=== PATIENT | male | born 1975 | race Hispanic/Latino ===

== ENCOUNTER 2018-12-24 09:04 | Inpatient (IN) | payer BC, OTHER ==
[2018-12-24 09:40] LABS: #Basophils 0.1 thou/uL (0.0-0.2); #Eosinphils 0.1 thou/uL (0.0-0.7); #Lymphocytes 2.7 thou/uL (1.20-3.40); #Monocytes 0.7 thou/uL (0.11-0.59); #Neutrophils 14.5 thou/uL (1.40-6.50); %Basophils 0.6 % (0.0-1.0); %Eosinophils 0.4 % (0.0-10.0); %Lymphocytes 14.9 % (21.0-51.0); %Monocytes 3.7 % (0.0-10.0); %Neutrophils 80.4 % (42.0-75.0); Mean Corpuscular HGB CONC 32.8 g/dL (32.0-36.0); Mean Corpuscular Hemoglobin 30.2 pg (27.0-31.0); Mean Corpuscular Volume 92.3 fL (78.0-98.0); Mean Platelet Volume 8.3 fL (7.4-10.4); Platelet Count 391 thou/uL (130-400); RBC Distribution Width 12.7 % (11.5-14.5); Red Blood Cell (RBC) Count 5.96 mill/uL (4.70-6.10)
[2018-12-24 09:51] LABS: ALT (SGPT) 20 U/L (8-55); AST (SGOT) 12 U/L (5-34); Albumin 5.4 g/dL (3.5-5.0); Alkaline Phosphatase 135 U/L (40-150); BUN (Urea Nitrogen) 21 mg/dL (8.9-20.6); Bilirubin, Total 0.3 mg/dL (0.2-1.2); Calc. Creatinine Clearance 0 mL/min (70-130); Calcium 9.6 mg/dL (7.8-10.44); Chloride 96 mmol/L (98-107); Estimated GFR-MDRD 37; Globulin 4.4 g/dL (2.4-3.5); Glucose 523 mg/dL (70-105); Lipase 60 U/L (8-78); Magnesium 2.6 mg/dL (1.6-2.6); Phosphorus 5.1 mg/dL (2.3-4.7); Potassium 5.2 mmol/L (3.5-5.1); Protein, Total 9.8 g/dL (6.0-8.3); Sodium 127 mmol/L (136-145)
[2018-12-24 09:55] LABS: Carbon Dioxide Less than 8 mmol/L (22-29)
[2018-12-24] MEDS ORDERED: Ondansetron PF 4 MG/2 ML Vial ONE ×2 (10:13→13:37)
[2018-12-24] MEDS ORDERED: HUMULIN R 100 UNITS in Sodium Chloride 0.9% 99 ML IVPB SCH (10:30)
[2018-12-24 11:13] LABS: Bilirubin Small (Negative); Blood, Urine Small (Negative); Glucose, Urine (Dipstick) 500 mg/dL (Negative); Leukocyte Negative (Negative); Nitrite Negative (Negative); Protein, Urine (Dipstick) 30 mg/dL (Neg-Trace); Urobilinogen 0.2 mg/dL (0.2-1.0); pH, Urine 5.5 (5.0-9.0)
[2018-12-24 11:14] LABS: Clarity CLEAR (Clear)
[2018-12-24 11:15] LABS: Specific Gravity, Urine 1.022 (1.002-1.036)
[2018-12-24 11:22] LABS: Bacteria/HPF 1+ HPF (None Seen); Hyaline Casts/LPF NONE SEEN LPF (0-3 Hyaline); RBC/HPF 0-3 HPF (0-3); Squamous Epithelial 0-3 HPF (0-3); WBC/HPF 0-3 HPF (0-3)
--- NOTE | 2018-12-24 11:29 | RAD ---
CHEST 1 VIEW: HISTORY: Nausea and vomiting. COMPARISON: Radiograph 06/15/2016. FINDINGS: Heart size is mildly enlarged. No focal airspace consolidation, pneumothorax, or effusion. No acute osseous abnormality. IMPRESSION: No acute intrathoracic abnormality. POS: TPC
[2018-12-24] MEDS ORDERED: HUMULIN R 100 UNITS in Sodium Chloride 0.9% 100 ML IVPB SCH (11:59)
[2018-12-24] MEDS ORDERED: Acetaminophen 325 MG TAB PO PRN (11:59)
[2018-12-24] MEDS ORDERED: Bisacodyl 5 MG TAB PO PRN (11:59)
[2018-12-24] MEDS ORDERED: Zolpidem Tartrate 5 MG TAB PO PRN (11:59)
[2018-12-24] MEDS ORDERED: Bisacodyl 10 MG SUPP PR PRN (11:59)
[2018-12-24] MEDS ORDERED: Loratadine 10 MG TAB PO PRN (11:59)
[2018-12-24] MEDS ORDERED: Cepastat Lozenges 1 LOZ PO PRN (11:59)
[2018-12-24] MEDS ORDERED: HYDROcodone/Acetaminophen 5/325 mg Tablet PO PRN (11:59)
[2018-12-24] MEDS ORDERED: Eucerin (Mineral Oil/Petrolatum,White) 30 gm Jar TOP PRN (11:59)
[2018-12-24] MEDS ORDERED: Sodium Chloride 0.9% 1,000 ML IV PRN ×4 (11:59)
[2018-12-24] MEDS ORDERED: NS 0.9% w/ 20 MEQ KCL 1,000 ML IV PRN (11:59)
[2018-12-24] MEDS ORDERED: Calcium Carbonate 500 MG ChewTAB PO PRN (11:59)
[2018-12-24] MEDS ORDERED: Ondansetron ODT 4 MG TAB PO PRN (11:59)
[2018-12-24] MEDS ORDERED: Sodium Chloride 0.65% Nasal 44 ML BOT EA NARE PRN (11:59)
[2018-12-24] MEDS ORDERED: Dextrose 5 %-0.45 % NaCl 1,000 ML IV PRN (11:59)
[2018-12-24] MEDS ORDERED: Ondansetron PF 4 MG/2 ML Vial IVP PRN (11:59)
[2018-12-24] MEDS ORDERED: Diabetic Tussin 200 MG/10 ML UDCUP PO PRN (11:59)
[2018-12-24] MEDS ORDERED: Senokot S 8.6-50 MG TAB PO PRN (11:59)
[2018-12-24] MEDS ORDERED: CCU Electrolyte Replacement 1 EACH IVPB ONE (11:59)
[2018-12-24] MEDS ORDERED: Artificial Tears 18 DROP/0.9 ML EA EYE PRN (11:59)
[2018-12-24] MEDS ORDERED: hydrALAZINE 20 MG/ML VIAL SLOW IVP PRN (11:59)
[2018-12-24] MEDS ORDERED: Loperamide HCl 2 MG CAP PO PRN (11:59)
[2018-12-24] MEDS ORDERED: Magnesium Oxide 400 MG TAB PO PRN ×2 (12:22)
[2018-12-24] MEDS ORDERED: Potassium Phosphate 15 MMOL in Sodium Chloride 0.9% 250 ML 250 ML IV PRN (12:22)
[2018-12-24] MEDS ORDERED: Magnesium 2 GM/NS 0.9% 100 ML 2 GM in Premix Bag 1 BAG IVPB PRN (12:22)
[2018-12-24] MEDS ORDERED: Potassium Chloride 40 MEQ in Premix Bag 1 BAG IVPB PRN (12:22)
[2018-12-24] MEDS ORDERED: Potassium Phosphate 9 MMOL in Sodium Chloride 0.9% 100 ML IVPB PRN (12:22)
[2018-12-24] MEDS ORDERED: Potassium Chloride 40 MEQ in Sodium Chloride 0.9% 250 ML 250 ML IVPB PRN (12:22)
[2018-12-24] MEDS ORDERED: Potassium Phosphate 12 MMOL in Sodium Chloride 0.9% 250 ML 250 ML IV PRN (12:22)
[2018-12-24] MEDS ORDERED: Potassium Chloride 20 MEQ TAB PO PRN (12:22)
[2018-12-24] MEDS ORDERED: CCU ELECTROLYTE REPLACEMENT PROTOCOL FS PRN (12:22)
[2018-12-24 13:10] LABS: BUN (Urea Nitrogen) 18 mg/dL (8.9-20.6); Calc. Creatinine Clearance 0 mL/min (70-130); Calcium 8.4 mg/dL (7.8-10.44); Carbon Dioxide Less than 8 mmol/L (22-29); Chloride 105 mmol/L (98-107); Estimated GFR-MDRD 50; Glucose 348 mg/dL (70-105); Magnesium 2.4 mg/dL (1.6-2.6); Phosphorus 3.4 mg/dL (2.3-4.7); Potassium 4.5 mmol/L (3.5-5.1); Sodium 132 mmol/L (136-145)
[2018-12-24] MEDS ORDERED: Sodium Bicarb 50 MEQ/50 ML Abboject 8.4% SYRINGE ONE (13:37)
[2018-12-24] MEDS ORDERED: Famotidine/PF 20 mg/2ml Vial ONE (13:37)
[2018-12-24 13:41] LABS: Actual Bicarbonate (HCO3a) 3.7 mEq/L (22-28); Analyzer IN Cardio ER; Base Excess (BEa) -22.2 mEq/L (-2.0 to +3.0); Calcium, Ionized 1.26 mmol/L (1.12-1.30); Carboxyhemoglobin (COHb) 0.3 gm% (0.0-3.0); Hemoglobin (Hb) 17.1 g/dL (14.0-18.0); O2 Tension (PaO2) 127.4 mmHg (80.0-100.0)
[2018-12-24 13:47] LABS: ALV-art Gradient 8.705 (0-20); CO2 Tension 10.9 mmHg (35.0-45.0); Puncture Site LRA; pH, Arterial 7.15 (7.35-7.45)
--- NOTE | 2018-12-24 15:06 | HP ---
PRIMARY CARE PHYSICIAN: [facility]. REASON FOR ADMISSION: Diabetes ketoacidosis, acute kidney failure. HISTORY OF PRESENT ILLNESS: A 43-year-old male, who has underlying history of diabetes, on insulin, who had one time admission in our hospital for diabetes ketoacidosis, who presented this time in the emergency room with complaint of nausea, vomiting, vague abdominal discomfort, and shortness of breath. He was not able to keep anything down and he stopped taking insulin. He did not eat significantly for last couple of days. He was feeling weak, fatigued, tired, dizzy. The patient denies any diarrhea, but he reports that because he did not eat anything that is why he does not have any bowel movement as well. He denies any abdominal distention. He denies any fever or chills. He denies any sore throat. He denies any flu-like illness. He denies any recent travel or sick exposure. When the patient presented to emergency room, he was hypertensive, tachycardic, tachypneic. His routine blood test showed severe acidosis with abnormal electrolytes and acute kidney failure. Clinically, he was having diabetes ketoacidosis. In the emergency room, he was given 2 to 3 L of IV fluid and he started making urine, but he was still tachypneic and his pH has not improved, that is why bicarbonate was given. The patient, when I saw at that time, he was already feeling better. He was still having Kussmaul type of breathing. At this point, the patient is being admitted to [facility] for DKA management. The patient reports that he did not run out his home medication. REVIEW OF SYSTEMS: CONSTITUTIONAL: Negative for weight loss or gain, ability to conduct usual activities. SKIN: Negative for rash, itching. EYES: Negative for double vision, pain. ENT/MOUTH: Negative for nose bleeding, neck stiffness, pain, tenderness. CARDIOVASCULAR: Negative for palpitations, dyspnea on exertion, orthopnea. RESPIRATORY: Negative for shortness of breath, wheezing, cough, hemoptysis, fever or night sweats. GASTROINTESTINAL: Negative for poor appetite, abdominal pain, heartburn, nausea, vomiting, constipation, or diarrhea. GENITOURINARY: Negative for urgency, frequency, dysuria, nocturia. MUSCULOSKELETAL: Negative for pain, swelling. NEUROLOGIC/PSYCHIATRIC: Negative for anxiety, depression. ALLERGY/IMMUNOLOGIC: Negative for skin rash, bleeding tendency. Please see my HPI for pertinent positives and negatives. All other review of systems reviewed and negative except as mentioned in HPI. PAST MEDICAL HISTORY: Diabetes type 2. PAST PSYCHIATRIC HISTORY: Posttraumatic stress disorder. PAST SURGICAL HISTORY: Reviewed and negative. SOCIAL HISTORY: The patient uses tobacco. He lives at home with family. No history of alcohol abuse, other illicit drug abuse. FAMILY HISTORY: Positive for diabetes. No family history of coronary artery disease, stroke, or cancer. CURRENT HOME MEDICATIONS: 1. Bupropion 300 mg p.o. daily. 2. Lisinopril 40 mg daily. 3. ProAir HFA as needed. 4. Celexa 40 mg daily. 5. Crestor 20 mg daily. 6. Lantus 25 units subcu daily. 7. Metformin 1000 mg twice daily. ALLERGIES: NO KNOWN DRUG ALLERGY. EMERGENCY ROOM COURSE: The patient has received IV fluid, bicarbonate, insulin drip, Zofran, and Pepcid. PHYSICAL EXAMINATION: VITAL SIGNS: Currently, blood pressure 142/97, pulse 116, respiratory rate 22, temperature 98.0, saturation 100% on room air. Weight 102.06 kg. GENERAL: The patient is currently alert and awake. No obvious acute distress. HEENT: Head; normocephalic, atraumatic. Eyes; pupils round, reactive to light. Extraocular muscle intact. ENT; oropharynx within normal limits. Moist mucous membranes. No oral lesion. No pharyngeal erythema. No exudate. NECK: Supple. No JVD. No thyromegaly. No carotid bruit. No jugular venous distention. LUNGS: Clear to auscultation without any rhonchi or rales. CARDIAC: S1 and S2 regular. Tachycardia. No murmur. No gallop. No rub. ABDOMEN: Soft. Bowel sounds present. Nontender. Nondistended. No organomegaly. No mass. No suprapubic tenderness. BACK: Unremarkable. No CVA tenderness. EXTREMITIES: Upper extremities; passive movement of all joints is normal. Lower extremities; no edema. Good distal pulsation. SKIN: No skin rash. HEMATOLOGICAL: No lymphadenopathy. PSYCHIATRIC: Normal affect. SIGNIFICANT LABORATORY DATA: EKG showing sinus tachycardia, left anterior fascicular block. Chest x-ray based on my review; no acute cardiopulmonary process. CBC; WBC 18.0, hemoglobin 18.0, and platelet 391. ABG; pH 7.15, CO2 of 10.9, bicarb 3.7, oxygen level 127.4, saturation 98.2. BMP; sodium 127, potassium 5.2, chloride 96, carbon dioxide less than 8, BUN 21, creatinine 2.02, glucose 523, calcium 9.6. LFT; AST 12, ALT 20, alkaline phosphatase 135, albumin 5.4, lipase 60, phosphorus 5.1, magnesium 2.6. Cardiac enzyme negative. Urinalysis; glucosuria, ketonuria. Serum ketones 13.23. Influenza A and B negative. Chest x-ray negative for any acute process. ASSESSMENT AND PLAN: Impression; 1. Diabetes ketoacidosis. This patient has clinically and laboratory finding teran diabetes ketoacidosis. He was initially given at least 3 L of fluid in the emergency room. We will continue with IV fluid. He is making now urine. His potassium is in reasonably accepted range and that is why insulin drip is started. We will monitor Accu-Chek every hourly and we will titrate insulin drip accordingly. The patient's pH is still 7.1 and that is why we gave him one ampule of bicarbonate. We will monitor BMP every 4 hourly. We will also monitor serum ketones. The patient will continue insulin drip up until anion gap closes. Whenever blood sugar drops below 250, at that point, we will change IV fluid to dextrose solution with insulin drip overlapping until ketones wash out. We will manage him in IMCU. We will closely monitor his hemodynamics. 2. Acute kidney failure due to prerenal etiology secondary to nausea and vomiting. The patient is given IV fluid and his creatinine is improving. We will repeat labs tomorrow. We will avoid nephrotoxins agent. 3. Abnormal electrolytes. This patient has currently low sodium. Potassium is slightly elevated. We will repeat electrolytes again tomorrow and replace accordingly. 4. Leukocytosis, likely due to stress response, does not suspect any infection at this point, the patient does not have any urinary tract infection symptoms. His chest x-ray is normal. 5. Hypertension, we will resume lisinopril tomorrow if blood pressure permits. 6. Dyslipidemia, we will start Lopid 600 mg twice daily. 7. Anxiety and depression, we will continue Celexa 20 mg b.i.d. 8. Deep vein thrombosis prophylaxis. Heparin 5000 units subcu twice daily. 9. Gastrointestinal prophylaxis, Pepcid p.o. or IV daily. CODE STATUS: The patient is full code. The patient does not have any surrogate decision maker. DISPOSITION PLAN: Based on clinical course. We are expecting the patient's stay in hospital more than 2 midnights. Plan of care discussed with the patient in detail. Job ID: [id number]
--- NOTE | 2018-12-24 15:13 | PDOC.PULCN ---
Pulmonology Consult: HPI - Date of Consult Date: 12/24/18 Time: 15:00 - Consult Details Reason for Consult: dka Requesting Physician: ganesh - History of Present Illness HPI: DAVID OSEI is a 43 year-old being admitted for DKA. The patient has a 4 year history of DM2 on Lantus 25U nightly at home. The patient states about 3 days ago he began to have N/V after eating some pickle chips from [employer]. He denies fevers, chills, or sweats. He denies rashes, burning with urination, or productive cough. He states he has vomitted x2 today. Denies any blood in vomit, denies diarrhea, or blood in stool. The patient states he has some mild right sided rib pain because he has been breathing so hard for the last day or two. He has used his inhaler x1 today. Patient was admitted at the [facility] one month ago for a case of DKA. REVIEW OF SYSTEMS: Gen: no fever, chills, or sweats Neuro: no numbness/tingling, no weakness, denies headache Eyes: no visual changes ENT: no hearing changes, no sore throat, no runny nose Resp: no cough, no SOB, no wheeze Card: no chest pain, no palpitations GI: see hpi : no dysuria, no hematuria, no incontinence, no change in frequency MSK: no myalgias, no joint pain/stiffness Heme: no easy bruising/bleeding Skin: no rash, no erythema PHYSICAL EXAMINATION: General: NAD, alert and oriented x3 HEENT: PERRLA, EOMI, normal sclera, oropharynx without erythema or exudate Neck: Supple. Full ROM. Heart/Cardiovascular System: RRR, Cap refill < 3 seconds, good pulses in all extremities Lungs/Respiratory System: clear to auscultation bilaterally. No increased work of breathing. Room air. Abdomen/Gastro-Intestinal System: no abdominal tenderness, normal bowel sounds, no masses, no organomegaly Extremeties: Warm extremities. No cyanosis or edema. Neuro: No gross deficits appreciated. CN 2-12 grossly intact Psychiatry: Awake, Alert and cooperative with exam Skin/ Integumentory: No lesions, rashes, or ulcers Musculoskeletal: Full ROM, Strength 5/5 in all 4 extremities Pulmonology Consult: ROS - Review of Systems Constitutional: negative: fever Pulmonology Consult: PMH Source: patient Past Medical History: DMII, HTN, PTSD - Family History Pertinent family history: non-contributory, no hx of DM or CAD - Social History Smoking Status: Current every day smoker (1ppd) Alcohol Use: none Drug Use History: marijuana Living Situation: Pulmonology Consult: Meds - Medications MAR Reviewed: Yes Medications: Current Medications Acetaminophen (Tylenol) 650 mg PO Q4H PRN PRN Reason: Headache/Fever/Mild Pain (1-3) Hydrocodone Bitart/Acetaminophen ([place] 5/325) 1 tab PO Q4H PRN PRN Reason: Moderate Pain (4-6) Albuterol/Ipratropium (Duoneb) 3 ml NEB [id number] PRN PRN Reason: SOB &/or Wheezing Artificial Tears (Tears Naturale) 2 drop EA EYE PRN PRN PRN Reason: Dry Eyes Bisacodyl (Dulcolax) 10 mg PO DAILYPRN PRN PRN Reason: Constipation Bisacodyl (Dulcolax) 10 mg UT DAILYPRN PRN PRN Reason: Constipation Calcium Carbonate (Tums) 1,000 mg PO Q4H PRN PRN Reason: Heartburn or Indigestion Famotidine (Pepcid) 20 mg SLOW IVP QPM JOCELYNE Famotidine (Pepcid) 20 mg PO QPM JOCELYNE Guaifenesin (Robitussin Sf) 200 mg PO Q4H PRN PRN Reason: Cough Heparin Sodium (Porcine) (Heparin) 5,000 units SC BID JOCELYNE Hydralazine HCl (Apresoline) 10 mg SLOW IVP Q4H PRN PRN Reason: SBP > 180 and HR < 70 Dextrose/Sodium Chloride (D5 1/2 Ns) 1,000 mls @ 250 mls/hr IV .Q4H PRN; Protocol PRN Reason: Step 4 of DKA Protocol Potassium Chloride/Dextrose/Sod Cl (D5 1/2 Ns W/20 Meq Kcl) 1,000 mls @ 250 mls /hr IV .Q4H PRN; Protocol PRN Reason: Step 4 of DKA Protocol Insulin Human Regular 100 (units/ Sodium Chloride) 101 mls @ 0 mls/hr IVPB INF JOCELYNE; Protocol Sodium Chloride (Normal Saline 0.9%) 1,000 mls @ 500 mls/hr IV .Q2H PRN; Protocol PRN Reason: Step 1 of DKA Protocol Sodium Chloride (Normal Saline 0.9%) 1,000 mls @ 1,000 mls/hr IV .Q1H PRN; Protocol PRN Reason: Step 1 of DKA Protocol Sodium Chloride (Normal Saline 0.9%) 1,000 mls @ 250 mls/hr IV .Q4H PRN; Protocol PRN Reason: SEE STEP 3 OF DKA PROTOCOL Sodium Chloride (Normal Saline 0.9%) 1,000 mls @ 500 mls/hr IV .Q2H PRN; Protocol PRN Reason: Step 2 of DKA Protocol Potassium Chloride/Sodium Chloride (Ns 0.9% W/ 20 Meq Kcl) 1,000 mls @ 500 mls/ hr IV .Q2H PRN; Protocol PRN Reason: Step 2 of DKA Protocol Potassium Chloride/Sodium Chloride (Ns 0.9% W/ 20 Meq Kcl) 1,000 mls @ 250 mls/ hr IV .Q4H PRN; Protocol PRN Reason: SEE STEP 3 OF DKA PROTOCOL Potassium Chloride 40 meq/ (Sodium Chloride) 270 mls @ 135 mls/hr IVPB ASDIR PRN PRN Reason: FOR SERUM K+ 2.5 - 3.5 Potassium Chloride 40 meq/ (Device) 100 mls @ 50 mls/hr IVPB ASDIR PRN PRN Reason: FOR SERUM K+ 2.5 - 3.5 Magnesium Sulfate 1 gm/ Sodium (Chloride) 102 mls @ 102 mls/hr IV PRN PRN PRN Reason: MAG LEVEL 1.4 - 2.0 Magnesium Sulfate 2 gm/ Device 100 mls @ 100 mls/hr IVPB ASDIR PRN PRN Reason: MAGNESIUM < 1.4 Potassium Phosphate 9 mmol/ (Sodium Chloride) 103 mls @ 25.75 mls/hr IVPB ASDIR PRN PRN Reason: Phosphate 1.0-1.8 Potassium Phosphate 12 mmol/ (Sodium Chloride) 254 mls @ 63.5 mls/hr IV ASDIR PRN PRN Reason: Serum phosphate 0.5-0.9 Potassium Phosphate 15 mmol/ (Sodium Chloride) 255 mls @ 63.75 mls/hr IV ASDIR PRN PRN Reason: Serum Phos < 0.5 Loperamide HCl (Imodium) 2 mg PO PRN PRN PRN Reason: Diarrhea/Loose Stools Loratadine (Claritin) 10 mg PO DAILYPRN PRN PRN Reason: Sinus Symptoms Magnesium Oxide (Magnesium Oxide) 400 mg PO BIDPRN PRN PRN Reason: FOR SERUM MAG 1.4 - 2.0 Magnesium Oxide (Magnesium Oxide) 800 mg PO PRN PRN PRN Reason: FOR SERUM MAG < 1.4 Mineral Oil/White Petrolatum (Eucerin Cream) 0 gm TOP BIDPRN PRN PRN Reason: Dry Skin Miscellaneous Medication (Phos-Nak) 1 pkt PO TIDPRN PRN PRN Reason: FOR PHOS LEVEL 1.0 - 1.8 Miscellaneous Medication (Phos-Nak) 2 pkt PO TIDPRN PRN PRN Reason: FOR PHOS LEVEL 0.5 - 1.0 Ccu Electrolyte (Replacement Protocol) 0 each FS PRN PRN PRN Reason: FOR ELECTROLYTE REPLACEMENT Ondansetron HCl (Zofran Odt) 4 mg PO Q6H PRN PRN Reason: Nausea/Vomiting Ondansetron HCl (Zofran) 4 mg IVP Q6H PRN PRN Reason: Nausea/Vomiting Potassium Chloride (K-Dur) 40 meq PO ASDIR PRN PRN Reason: FOR SERUM K+ 2.5 - 3.5 Potassium Chloride (Klor-Con) 40 meq PER TUBE ASDIR PRN PRN Reason: FOR SERUM K+ 2.5-3.5 Senna/Docusate Sodium (Senokot S) 2 tab PO BID PRN PRN Reason: Constipation Sodium Chloride ([place] Nasal [place] 0.65%) 0 ml EA NARE QIDPRN PRN PRN Reason: Nasal Congestion Throat Lozenges (Cepastat Lozenges) 1 jayant PO Q2H PRN PRN Reason: Sore Throat Zolpidem Tartrate (Ambien) 5 mg PO HSPRN PRN PRN Reason: Insomnia - Allergies Allergies/Adverse Reactions: Allergies Allergy/AdvReac Type Severity Reaction Status Date / Time No Known Drug Allergies Allergy Verified 08/30/15 00:55 Pulmonology Consult: PE - Physical Exam Constitutional: NAD Pulmonology Consult: Results - Labs Result Diagrams: 12/24/18 09:21 12/24/18 12:36 - ABG Interpretation ABG Results: ABG pH 7.15 (7.35-7.45) L* 12/24/18 13:33 ABG pCO2 10.9 mmHg (35.0-45.0) L* 12/24/18 13:33 ABG O2 Sat Calc/Fernanda 98.2 % (94.0-98.0) H 12/24/18 13:33 ABG Base Excess -22.2 mEq/L (-2.0 to +3.0) L 12/24/18 13:33 Pulmonology Consult: A/P - Problem (1) DKA (diabetic ketoacidoses) Current Visit: Yes Code(s): E13.10 - OTH DIABETES MELLITUS WITH KETOACIDOSIS WITHOUT COMA Status: Acute (2) Metabolic acidosis due to diabetes mellitus Current Visit: Yes Code(s): E11.69 - TYPE 2 DIABETES MELLITUS WITH OTHER SPECIFIED COMPLICATION; E87.2 - ACIDOSIS Status: Acute (3) PTSD (post-traumatic stress disorder) Current Visit: Yes Code(s): F43.10 - POST-TRAUMATIC STRESS DISORDER, UNSPECIFIED Status: Acute - Time Time: 50% of the time was spent in coordination of care (as documented) at patient's floor/unit and/or counseling patient. Time with Patient: greater than 50 minutes - Plan Plan: # DKA 2/2 DMII, metabolic acidosis - IV insulin, NS at 200ml/hr - AG 23 - pH 7.15, co2 10.4, bicarb 3.7 - corrected na 134, cl 97 - mag 2.8, phos 5.1 - 1 amp bicarb in ED - bmp q4hrs # Gastroenteritis - zofran - vomiting leading to dehydration appears to be source for DKA - bcx, ucx pending - WBC 18, will monitor for other sources of infection but appears to be viral clinically # Asthma - nebs prn # htn - home meds # ptsd - home meds
[2018-12-24 16:15] VITALS: BMI 30.4
[2018-12-24 16:22] LABS: Anion Gap 20 mmol/L (10-20); BUN (Urea Nitrogen) 16 mg/dL (8.9-20.6); Calc. Creatinine Clearance 105 mL/min (70-130); Calcium 8.3 mg/dL (7.8-10.44); Chloride 108 mmol/L (98-107); Estimated GFR-MDRD 59; Glucose 204 mg/dL (70-105); Potassium 4.3 mmol/L (3.5-5.1); Sodium 133 mmol/L (136-145)
[2018-12-24 16:26] LABS: Carbon Dioxide 9 mmol/L (22-29)
[2018-12-24] MEDS: NS 0.9% w/ 20 MEQ KCL 1,000 ML IV PRN ×2 (17:24→19:25)
[2018-12-24] MEDS ORDERED: Prevnar 13-Val Conj/PF 0.5 ML SYRINGE IM ONE (17:45)
[2018-12-24] MEDS: Heparin 5,000 UNITS/ML VIAL SC SCH (19:25)
[2018-12-24] MEDS: Famotidine/PF 20 mg/2ml Vial SLOW IVP SCH (19:26)
[2018-12-24 20:18] LABS: Anion Gap 14 mmol/L (10-20); BUN (Urea Nitrogen) 12 mg/dL (8.9-20.6); Calc. Creatinine Clearance 129 mL/min (70-130); Calcium 8.1 mg/dL (7.8-10.44); Carbon Dioxide 13 mmol/L (22-29); Chloride 110 mmol/L (98-107); Estimated GFR-MDRD 75; Glucose 108 mg/dL (70-105); Sodium 133 mmol/L (136-145)
[2018-12-24] MEDS: D5 1/2 NS w/20 mEq KCL 1,000 ML IV PRN (20:56)
[2018-12-24] MEDS ORDERED: Famotidine 20 MG TAB PO SCH (21:00)
[2018-12-25] MEDS: D5 1/2 NS w/20 mEq KCL 1,000 ML IV PRN ×2 (00:53→05:12)
[2018-12-25 01:22] LABS: Anion Gap 12 mmol/L (10-20); BUN (Urea Nitrogen) 9 mg/dL (8.9-20.6); Calc. Creatinine Clearance 132 mL/min (70-130); Calcium 8.2 mg/dL (7.8-10.44); Carbon Dioxide 14 mmol/L (22-29); Chloride 109 mmol/L (98-107); Estimated GFR-MDRD 77; Glucose 208 mg/dL (70-105); Potassium 3.8 mmol/L (3.5-5.1); Sodium 131 mmol/L (136-145)
[2018-12-25 06:05] LABS: #Basophils 0.1 thou/uL (0.0-0.2); #Eosinphils 0.3 thou/uL (0.0-0.7); #Lymphocytes 3.8 thou/uL (1.20-3.40); #Monocytes 0.9 thou/uL (0.11-0.59); #Neutrophils 6.7 thou/uL (1.40-6.50); %Basophils 0.8 % (0.0-1.0); %Eosinophils 2.2 % (0.0-10.0); %Lymphocytes 32.1 % (21.0-51.0); %Monocytes 7.5 % (0.0-10.0); %Neutrophils 57.4 % (42.0-75.0); Hemoglobin 14.4 g/dL (14.0-18.0); Mean Corpuscular HGB CONC 34.2 g/dL (32.0-36.0); Mean Corpuscular Hemoglobin 30.5 pg (27.0-31.0); Mean Corpuscular Volume 89.2 fL (78.0-98.0); Mean Platelet Volume 7.9 fL (7.4-10.4); Platelet Count 252 thou/uL (130-400); RBC Distribution Width 12.5 % (11.5-14.5); Red Blood Cell (RBC) Count 4.73 mill/uL (4.70-6.10); White Blood Cell (WBC) Count 11.7 thou/uL (4.8-10.8)
[2018-12-25 06:10] LABS: Hemoglobin A1c 12.8 % (4.0-6.0)
[2018-12-25 06:41] LABS: ALT (SGPT) 12 U/L (8-55); AST (SGOT) 9 U/L (5-34); Albumin 3.7 g/dL (3.5-5.0); Alkaline Phosphatase 71 U/L (40-150); Anion Gap 9 mmol/L (10-20); BUN (Urea Nitrogen) 7 mg/dL (8.9-20.6); Bilirubin, Total 0.5 mg/dL (0.2-1.2); Calc. Creatinine Clearance 145 mL/min (70-130); Calcium 8.6 mg/dL (7.8-10.44); Carbon Dioxide 16 mmol/L (22-29); Chloride 112 mmol/L (98-107); Estimated GFR-MDRD 85; Globulin 2.5 g/dL (2.4-3.5); Glucose 194 mg/dL (70-105); Magnesium 2.1 mg/dL (1.6-2.6); Potassium 3.4 mmol/L (3.5-5.1); Protein, Total 6.2 g/dL (6.0-8.3); Sodium 134 mmol/L (136-145)
[2018-12-25 06:46] LABS: Phosphorus 1.2 mg/dL (2.3-4.7)
[2018-12-25 08:24] LABS: Base Excess-Venous -25.5 mmol/L (-2.0 to 3.0); Bicarbonate (HCO3v) 6.1 mmol/L (22.0-28.0); CO2 Tension (PvCO2) 28.6 mmHg (40.0-50.0); Calcium, Ionized 1.14 mmol/L (See Comments:); Chloride 109 mmol/L (98-107); O2 Tension (PvO2) 29.7 mmHg (35.0-45.0); Potassium 5.4 mmol/L (3.5-5.1); Sodium 129 mmol/L (138-145); pH (Venous) 6.938 (7.320-7.430); vO2 Saturation-calc 28.9 % (60.0-85.0)
[2018-12-25] MEDS ORDERED: Dextrose 5% in Water 1,000 ML IV PRN (08:34)
[2018-12-25] MEDS ORDERED: Dextrose 50% Abboject 50 ML SYRINGE SLOW IVP PRN (08:34)
[2018-12-25] MEDS: Heparin 5,000 UNITS/ML VIAL SC SCH ×4 (08:45→21:21)
--- NOTE | 2018-12-25 08:57 | PRG ---
DATE OF SERVICE: 12/25/2018 SERVICE: Pulmonary Medicine. INTERVAL HISTORY: The patient is doing fine from a respiratory standpoint. Breathing comfortably. He has an appetite this morning. He has no complaints of chest pain, fevers, or chills. His gap closed overnight. Otherwise, he has no complaints. PHYSICAL EXAMINATION: VITAL SIGNS: Afebrile, pulse 97, blood pressure 130/81, respirations 13, and saturation 100% on room air. GENERAL: The patient is awake and alert, in no apparent distress. LUNGS: Excellent air entry. Minimal crackles are present in dependent regions. HEART: Normal rate. Regular. ABDOMEN: Soft, nontender, and nondistended. Bowel sounds are positive. MUSCULOSKELETAL: No cyanosis or clubbing. No pitting in the bilateral lower extremities. NEUROLOGIC: Grossly nonfocal. LABORATORY DATA: WBC 11.7, hemoglobin 14.4, and platelets 252,000. A pH of 7.15, pCO2 of 10.9, and pO2 of 127 previously. Bicarb has improved to 16, anion gap has completely resolved. Basic metabolic profile is otherwise unremarkable. Liver function studies are normal. Potassium 3.4. Hemoglobin A1c 12.8. Urinalysis is unremarkable. Beta-hydroxybutyric acid has resolved. Blood cultures x2 and influenza A and B are negative. ASSESSMENT: 1. Diabetic ketoacidosis. 2. Viral gastroenteritis with intentional interruption of insulin secondary to having no p.o.. DISCUSSION AND PLAN: We talked about the need for the patient to always take his insulin even when he is sick and not able to tolerate p.o. Sometimes, he will need to modify the dose to prevent hypoglycemia, but he understands that he is a type 1 diabetic, he needs a continuous drip of insulin in the form of long-acting subcutaneous medication. We will convert him back over to subcu insulin, provide him with pre-meal insulin, and discontinue the insulin drip 2 hours after the Lantus goes in. From my perspective, he is stable for transition to the floor. He has cleared his anion gap metabolic acidosis and currently has a non-gap acidosis, most likely secondary to fluid resuscitation, which will be interrupted. Pulmonary/Critical Care will continue to follow along. Potassium to be replaced. Job ID: [id number]
[2018-12-25] MEDS ORDERED: Potassium Phosphate 30 MMOL in Sodium Chloride 0.9% 500 ML IVPB SCH (09:15)
[2018-12-25] MEDS ORDERED: Potassium Chloride 20 MEQ TAB PO SCH (09:30)
[2018-12-25] MEDS: Insulin Glargine 20 UNITS in Pre-Filled Syringe 1 EACH SC SCH (09:57)
--- NOTE | 2018-12-25 11:24 | PDOC.PN ---
- Subjective Encounter Start Date: 12/25/18 Encounter Start Time: 07:30 -: old records requested/rev Patient seen and examined. No new complaints. No overnight events - Objective Resuscitation Status - Order Detail: 12/24/18 11:20 Resuscitation Status Routine Resuscitation Status: FULL: Full Resuscitation MAR Reviewed: Yes Vital Signs & Weight: Vital Signs (12 hours) Temp Pulse Ox 12/25/18 08:00 97 12/25/18 04:00 97.8 F 12/25/18 00:10 98.7 F Weight Weight 224 lb 13.944 oz Most Recent Monitor Data Heart Rate from ECG 85 NIBP 126/79 NIBP BP-Mean 94 Respiration from ECG 13 SpO2 99 I&O: 12/24/18 12/25/18 12/26/18 06:59 06:59 06:59 Intake Total 3028 1530 Output Total 3050 200 Balance -22 1330 Result Diagrams: 12/25/18 05:03 12/25/18 05:03 Additional Labs: Accuchecks 12/25/18 12/25/18 12/25/18 10:30 06:34 05:32 POC Glucose 175 H 135 H 197 H 12/25/18 12/25/18 12/25/18 04:28 03:27 02:28 POC Glucose 204 H 204 H 196 H 12/25/18 12/25/18 12/24/18 01:31 00:25 23:28 POC Glucose 211 H 210 H 206 H 12/24/18 12/24/18 12/24/18 22:29 21:19 20:23 POC Glucose 250 H 111 H 98 12/24/18 12/24/18 12/24/18 18:34 17:02 15:58 POC Glucose 220 H 159 H 321 H 12/24/18 12/24/18 13:57 12:47 POC Glucose 313 H 372 H EKG Reviewed by me: Yes (nsr) Phys Exam - Physical Examination Constitutional: NAD HEENT: PERRLA, moist MMs, sclera anicteric Neck: no JVD, supple Respiratory: no wheezing, no rales, no rhonchi Cardiovascular: RRR, no significant murmur, no rub Gastrointestinal: soft, non-tender, no distention, positive bowel sounds Musculoskeletal: no edema, pulses present Neurological: non-focal, normal sensation, moves all 4 limbs Lymphatic: no nodes Psychiatric: normal affect, A&O x 3 Skin: no rash, normal turgor Dx/Plan (1) DKA (diabetic ketoacidoses) Code(s): E13.10 - OTH DIABETES MELLITUS WITH KETOACIDOSIS WITHOUT COMA Status : Acute (2) Abnormal blood electrolyte level Code(s): E87.8 - OTH DISORDERS OF ELECTROLYTE AND FLUID BALANCE, NEC Status: Acute (3) Acute kidney failure Status: Acute (4) Hypertension Code(s): I10 - ESSENTIAL (PRIMARY) HYPERTENSION Status: Chronic (5) PTSD (post-traumatic stress disorder) Code(s): F43.10 - POST-TRAUMATIC STRESS DISORDER, UNSPECIFIED Status: Chronic - Plan cont current plan of care * restart lantus * DC insulin drip * replace potassium phosphate * transfer to medical * home medication reconciled * medication reviewed as below * symptomatic treatment * repeat labs tomorrow. Review of Systems - Review of Systems ENT: negative: Ear Pain, Ear Discharge, Nose Pain, Nose Discharge, Nose Congestion, Mouth Pain, Mouth Swelling, Throat Pain, Throat Swelling, Other Respiratory: negative: Cough, Dry, Shortness of Breath, Hemoptysis, SOB with Excertion, Pleuritic Pain, Sputum, Wheezing Cardiovascular: negative: chest pain, palpitations, orthopnea, paroxysmal nocturnal dyspnea, edema, light headedness, other Gastrointestinal: negative: Nausea, Vomiting, Abdominal Pain, Diarrhea, Constipation, Melena, Hematochezia, Other Genitourinary: negative: Dysuria, Frequency, Incontinence, Hematuria, Retention , Other Musculoskeletal: negative: Neck Pain, Shoulder Pain, Arm Pain, Back Pain, Hand Pain, Leg Pain, Foot Pain, Other Skin: negative: Rash, Lesions, Nathaniel, Bruising, Other - Medications/Allergies Allergies/Adverse Reactions: Allergies Allergy/AdvReac Type Severity Reaction Status Date / Time No Known Drug Allergies Allergy Verified 08/30/15 00:55 Medications: Current Medications Acetaminophen (Tylenol) 650 mg PO Q4H PRN PRN Reason: Headache/Fever/Mild Pain (1-3) Hydrocodone Bitart/Acetaminophen ([place] 5/325) 1 tab PO Q4H PRN PRN Reason: Moderate Pain (4-6) Albuterol/Ipratropium (Duoneb) 3 ml NEB [id number] JOCELYNE Artificial Tears (Tears Naturale) 2 drop EA EYE PRN PRN PRN Reason: Dry Eyes Bupropion HCl (Wellbutrin Xl) 300 mg PO DAILY [facility] Citalopram Hydrobromide (Celexa) 20 mg PO BID [facility] Dextrose/Water (Dextrose 50%) 25 gm SLOW IVP PRN PRN PRN Reason: Hypoglycemia Famotidine (Pepcid) 20 mg SLOW IVP QPM [facility] Last Admin: 12/24/18 19:26 Dose: 20 mg Glucagon (Glucagon) 1 mg IM PRN PRN PRN Reason: Hypoglycemia Heparin Sodium (Porcine) (Heparin) 5,000 units SC TID [facility] Last Admin: 12/25/18 10:29 Dose: Not Given Hydralazine HCl (Apresoline) 10 mg SLOW IVP Q4H PRN PRN Reason: SBP > 180 and HR < 70 Insulin Glargine 20 units/ (Miscellaneous Medication) 0.2 mls @ 0 mls/hr SC QAM [facility] Last Admin: 12/25/18 09:57 Dose: 0.2 mls Dextrose/Water (D5w) 1,000 mls @ 0 mls/hr IV .Q0M PRN PRN Reason: Hypoglycemia Last Admin: 12/25/18 10:02 Dose: 1,000 mls Potassium Phosphate 30 mmol/ (Sodium Chloride) 510 mls @ 83.3 mls/hr IVPB ONE [facility] Stop: 12/25/18 16:00 Insulin Human Lispro (Humalog) 5 units SC 0800 [facility] Insulin Human Lispro (Humalog) 0 units SC .MILD SLIDING SCALE PRN PRN Reason: Mild Correctional Scale Lisinopril (Zestril) 20 mg PO DAILY [facility] Loperamide HCl (Imodium) 2 mg PO PRN PRN PRN Reason: Diarrhea/Loose Stools Loratadine (Claritin) 10 mg PO DAILYPRN PRN PRN Reason: Sinus Symptoms Metformin HCl (Glucophage) 1,000 mg PO BID-[facility] Mineral Oil/White Petrolatum (Eucerin Cream) 0 gm TOP BIDPRN PRN PRN Reason: Dry Skin Ondansetron HCl (Zofran Odt) 4 mg PO Q6H PRN PRN Reason: Nausea/Vomiting Ondansetron HCl (Zofran) 4 mg IVP Q6H PRN PRN Reason: Nausea/Vomiting Potassium Chloride (K-Dur) 40 meq PO 0930 [facility] Stop: 12/25/18 11:30 Last Admin: 12/25/18 10:02 Dose: 40 meq Rosuvastatin Calcium (Crestor) 20 mg PO DAILY [facility] Senna/Docusate Sodium (Senokot S) 2 tab PO BID PRN PRN Reason: Constipation Sodium Chloride ([place] 0.65%) 0 ml EA NARE QIDPRN PRN PRN Reason: Nasal Congestion Sodium Chloride (Flush - Normal Saline) 10 ml IVF Q12HR [facility] Last Admin: 12/25/18 08:59 Dose: 10 ml Sodium Chloride (Flush - Normal Saline) 10 ml IVF PRN PRN PRN Reason: Saline Flush Zolpidem Tartrate (Ambien) 5 mg PO HSPRN PRN PRN Reason: Insomnia
[2018-12-25] MEDS ORDERED: Bupropion 150 MG XL TAB PO SCH (11:45)
[2018-12-25] MEDS: HumaLOG 300 UNITS/3 ML VIAL SC PRN ×2 (16:22→21:22)
[2018-12-25] MEDS: metFORMIN 500 MG TAB PO SCH (16:53)
[2018-12-25] MEDS: Famotidine/PF 20 mg/2ml Vial SLOW IVP SCH (21:23)
[2018-12-25] MEDS: Citalopram 20 MG TAB PO SCH (21:23)
[2018-12-25] MEDS ORDERED: Melatonin 3 MG TAB PO PRN (23:33)
[2018-12-26] MEDS: HumaLOG 300 UNITS/3 ML VIAL SC PRN (05:45)
[2018-12-26 05:54] LABS: Anion Gap 15 mmol/L (10-20); BUN (Urea Nitrogen) 7 mg/dL (8.9-20.6); Calc. Creatinine Clearance 169 mL/min (70-130); Carbon Dioxide 17 mmol/L (22-29); Chloride 106 mmol/L (98-107); Estimated GFR-MDRD Greater than 90; Glucose 260 mg/dL (70-105); Magnesium 1.6 mg/dL (1.6-2.6); Potassium 3.6 mmol/L (3.5-5.1); Sodium 134 mmol/L (136-145)
[2018-12-26 06:02] LABS: Phosphorus 3.1 mg/dL (2.3-4.7)
[2018-12-26] MEDS ORDERED: HumaLOG 300 UNITS/3 ML VIAL SC SCH (08:00)
[2018-12-26] MEDS: Heparin 5,000 UNITS/ML VIAL SC SCH (08:44)
[2018-12-26] MEDS: Citalopram 20 MG TAB PO SCH (08:44)
[2018-12-26] MEDS: Insulin Glargine 20 UNITS in Pre-Filled Syringe 1 EACH SC SCH (08:44)
[2018-12-26] MEDS: metFORMIN 500 MG TAB PO SCH (08:45)
[2018-12-26 08:49] VITALS: BP 133/79
[2018-12-26] MEDS ORDERED: Lisinopril 20 MG TAB PO SCH (09:00)
[2018-12-26] MEDS ORDERED: Rosuvastatin 20 MG TAB PO SCH (09:00)
[2018-12-26] MEDS ORDERED: Bupropion 150 MG XL TAB PO SCH (09:00)
[2018-12-26 09:48] VITALS: TEMP 98.3
[2018-12-26] MEDS ORDERED: Magnesium 2 GM/50 ML 2 GM in Premix Bag 1 BAG IVPB SCH (10:30)
[2018-12-26] MEDS ORDERED: Potassium Chloride 20 MEQ TAB PO SCH (10:30)
--- NOTE | 2018-12-26 12:30 | DIS ---
DATE OF ADMISSION: 12/24/2018 DATE OF DISCHARGE: 12/26/2018 PRIMARY CARE PHYSICIAN: [facility] Call Admission. DISCHARGE DISPOSITION: Home. PRIMARY DISCHARGE DIAGNOSES: 1. Diabetic ketoacidosis, resolved. 2. Acute kidney failure, improved. 3. Abnormal blood electrolyte level, corrected. SECONDARY DISCHARGE DIAGNOSES: 1. Hypertension. 2. Posttraumatic stress disorder. 3. Diabetes type 1, on insulin. PRIMARY PROCEDURE/OPERATION: None. RADIOLOGICAL INVESTIGATION: Chest x-ray normal. SIGNIFICANT LABORATORY DATA: WBC 11.7, platelet 252, hemoglobin 14.4. Sodium 134, creatinine 0.83, phosphorus 3.1, magnesium 1.6. Urinalysis, glucosuria, ketonuria, serum ketones 2.6. Blood culture, urine culture, influenza screen negative. DISCHARGE MEDICATIONS: 1. Humalog insulin as per sliding scale. 2. Lantus insulin 20 units subcu daily. 3. Metformin 1000 mg p.o. b.i.d. 4. Crestor 20 mg p.o. daily. 5. Lisinopril 20 mg daily. 6. Celexa 20 mg b.i.d. 7. Bupropion 300 mg p.o. daily. 8. ProAir HFA one puff q.4 hourly p.r.n. CONTRAINDICATION: None. CODE STATUS: Full code. INPATIENT HIGH LIFT DRIVER: Fausto Monzon MD was following while in hospital TEST RESULTS PENDING ON DISCHARGE: None. ALLERGIES: NO KNOWN DRUG ALLERGIES. DISCHARGE PLAN: Posthospital, the patient will follow up with primary care physician for further adjustment of insulin therapy. HOSPITAL COURSE: A 43-year-old male, who was admitted by me on December 24, 2018. Please see my HPI for further details. The patient was admitted for diabetic ketoacidosis. He was having acute kidney injury. This patient ran out his insulin and that contributed to his DKA. He was severely acidotic, required bicarbonate. He was treated in IM with diabetic ketoacidosis protocol treatment. Next day, the patient's condition significantly improved and we transferred him to medical floor. We restarted his Lantus insulin. We prescribed all insulin to his pharmacy. The patient will continue rest of medication as per previous, dietary education given, compliance education given to medicine. His diabetes chronically appears not well controlled based on his hemoglobin A1c 12.8 and that is why I have provided the patient education about how to adjust insulin therapy at home and we also started sliding scale insulin in addition to basal insulin. At this point, the patient is medically stable. I have seen and examined the patient at bedside today. All review of systems reviewed with him and negative. His vital signs are normal. His examination is completely normal. Plan of care discussed with the patient and his family member as well. Job ID: [id number]
--- NOTE | 2018-12-28 14:06 | EKG ---
Test Reason : Blood Pressure : / mmHG Vent. Rate : 133 BPM Atrial Rate : 133 BPM P-R Int : 120 ms QRS Dur : 090 ms QT Int : 312 ms P-R-T Axes : 051 113 046 degrees QTc Int : 464 ms Sinus tachycardia Left posterior fascicular block Abnormal ECG Confirmed by YASMEEN COOK M.D. ([id number]), editorial intern LUIS SIMMONS ([id number] on 12/28/2018 2:04:57 PM Referred By: Confirmed By:YASMEEN COOK M.D.
== END 2018-12-26 14:17 | disposition home or self-care (01) | DRG 638 ==
LOC: ERS 09:04 → ERHOLD 10:20 → IMCU/EMU 15:44 → ONC 12-25 15:25
PROVIDERS: ADMIT Internal Medicine; ATTEND Internal Medicine
DX: E10.10 Type 1 diabetes mellitus with ketoacidosis without coma (principal); N17.9 Acute kidney failure, unspecified; F43.10 Post-traumatic stress disorder, unspecified; E87.8 Other disorders of electrolyte and fluid balance, not elsewhere classified; I10 Essential (primary) hypertension; A08.4 Viral intestinal infection, unspecified; F17.210 Nicotine dependence, cigarettes, uncomplicated; E78.5 Hyperlipidemia, unspecified; D72.829 Elevated white blood cell count, unspecified; F41.8 Other specified anxiety disorders; Z79.4 Long term (current) use of insulin; Z71.3 Dietary counseling and surveillance
CPT/HCPCS: 36415; 36416; 71045; 80048; 80053; 81003; 81015; 82010; 82330; 82803; 82805; 83036; 83690; 83735; 84100; 84484; 85025; 87040; 87086; 87804; 93005; 94640; 96361; 96365; 96366; 96375; J0171; J1644; J1815; J1825; J2405; J3475; J7050; J7070; J7620; S0028

== ENCOUNTER 2019-01-21 17:04 | Inpatient (IN) | payer OTHER ==
[2019-01-21] MEDS ORDERED: Insulin Regular 300 UNITS/3 ML VIAL ONE (17:39)
[2019-01-21 17:44] LABS: Bicarbonate (HCO3v) 3.3 mmol/L (22.0-28.0); CO2 Tension (PvCO2) 19.6 mmHg (40.0-50.0); Chloride 112 mmol/L (98-107); Hemoglobin - Calc 19.2 g/dL (14.0-18.0); Potassium 5.5 mmol/L (3.5-5.1); Sodium 131 mmol/L (138-145); vO2 Saturation-calc 54.2 % (60.0-85.0)
[2019-01-21 17:45] LABS: Calcium, Ionized 1.26 mmol/L (See Comments:); T. Carbon Dioxide Less than 5.0 mmol/L (22.0-28.0)
[2019-01-21 17:46] LABS: pH (Venous) 6.836 (7.320-7.430)
[2019-01-21 17:47] LABS: ALT (SGPT) 18 U/L (8-55); AST (SGOT) 12 U/L (5-34); Albumin 4.9 g/dL (3.5-5.0); Alkaline Phosphatase 133 U/L (40-150); BUN (Urea Nitrogen) 20 mg/dL (8.9-20.6); Bilirubin, Total 0.3 mg/dL (0.2-1.2); Calc. Creatinine Clearance 0 mL/min (70-130); Calcium 9.8 mg/dL (7.8-10.44); Chloride 103 mmol/L (98-107); Estimated GFR-MDRD 30; Globulin 3.6 g/dL (2.4-3.5); Lipase 87 U/L (8-78); Potassium 5.5 mmol/L (3.5-5.1); Protein, Total 8.5 g/dL (6.0-8.3); Sodium 132 mmol/L (136-145)
[2019-01-21 17:51] LABS: Band 11 % (5-11); Hemoglobin 16.9 g/dL (14.0-18.0); Lymphocytes 2 % (21-51); MDiff Complete? YES; Mean Corpuscular HGB CONC 30.8 g/dL (32.0-36.0); Mean Corpuscular Volume 97.5 fL (78.0-98.0); Mean Platelet Volume 8.1 fL (7.4-10.4); Monocytes 11 % (0-10); Neutrophil 73 % (42-75); Platelet Count 331 thou/uL (130-400); Platelet Morphology Comment Appears Adequate; RBC Distribution Width 14.5 % (11.5-14.5); Reactive Lymphocytes 3 % (0-10); Red Blood Cell (RBC) Count 5.63 mill/uL (4.70-6.10); Toxic Granulation SLIGHT; Vacuoles SLIGHT; White Blood Cell (WBC) Count 24.1 thou/uL (4.8-10.8)
[2019-01-21 17:53] LABS: Carbon Dioxide Less than 8 mmol/L (22-29); Glucose 608 mg/dL (70-105)
[2019-01-21] MEDS ORDERED: Sodium Bicarb 50 MEQ/50 ML Abboject 8.4% SYRINGE ONE (17:53)
--- NOTE | 2019-01-21 17:58 | RAD ---
CHEST ONE VIEW: 01/21/19 HISTORY: Dyspnea. COMPARISON: Radiograph 12/24/18. FINDINGS: Lungs are clear. No pneumothorax or effusion. The cardiac silhouette and mediastinal contours are wit hin normal limits. IMPRESSION: No acute intrathoracic abnormality. No significant change. POS: [facility]
[2019-01-21 17:59] LABS: CK (CPK) 75 U/L (30-200); Magnesium 2.7 mg/dL (1.6-2.6)
[2019-01-21 19:22] LABS: Bilirubin Small (Negative); Blood, Urine Small (Negative); Clarity Slightly Cloudy (Clear); Glucose, Urine (Dipstick) 500 mg/dL (Negative); Leukocyte Negative (Negative); Nitrite Negative (Negative); Protein, Urine (Dipstick) 100 mg/dL (Neg-Trace); Urobilinogen 0.2 mg/dL (0.2-1.0); pH, Urine 5.5 (5.0-9.0)
[2019-01-21 19:24] LABS: RBC/HPF 0-3 HPF (0-3); Squamous Epithelial 0-3 HPF (0-3); WBC/HPF 0-3 HPF (0-3)
[2019-01-21 19:25] LABS: Bacteria/HPF Rare-Few HPF (None Seen); Crystals/HPF 1+ AMORPH URATES HPF (Negative); Hyaline Casts/LPF 0-3 HYALINE CAST LPF (0-3 Hyaline); Other Casts/LPF 0-3 COARSE GRAN LPF (0-3 Hyaline); Renal Epithelial 0-3 HPF (0-3)
[2019-01-21 20:05] VITALS: BMI 24.7
[2019-01-21] MEDS ORDERED: Ondansetron PF 4 MG/2 ML Vial IVP PRN (20:21)
[2019-01-21] MEDS ORDERED: Ondansetron ODT 4 MG TAB SL PRN (20:21)
[2019-01-21] MEDS ORDERED: Insulin Regular 100 units/100 ml in NS IVPB SCH (20:30)
[2019-01-21] MEDS ORDERED: Sodium Chloride 0.9% 1,000 ML IV SCH (20:30)
[2019-01-21] MEDS ORDERED: Sodium Chloride 0.9% 1,000 ML IV PRN ×4 (22:22)
[2019-01-21] MEDS ORDERED: NS 0.9% w/ 20 MEQ KCL 1,000 ML IV PRN ×2 (22:22)
[2019-01-21] MEDS ORDERED: CCU Electrolyte Replacement 1 EACH IVPB ONE (22:22)
[2019-01-21] MEDS ORDERED: Dextrose 5 %-0.45 % NaCl 1,000 ML IV PRN (22:22)
[2019-01-21] MEDS ORDERED: Acetaminophen 325 MG TAB PO PRN (22:23)
[2019-01-21] MEDS ORDERED: Zolpidem Tartrate 5 MG TAB PO PRN (22:23)
[2019-01-21] MEDS ORDERED: Magnesium Oxide 400 MG TAB PO PRN ×2 (22:27)
[2019-01-21] MEDS ORDERED: Potassium Chloride 40 MEQ in Sodium Chloride 0.9% 250 ML 250 ML IVPB PRN (22:27)
[2019-01-21] MEDS ORDERED: Potassium Chloride 20 MEQ TAB PO PRN (22:27)
[2019-01-21] MEDS ORDERED: Potassium Chloride 40 MEQ in Premix Bag 1 BAG IVPB PRN (22:27)
[2019-01-21] MEDS ORDERED: Potassium Phosphate 15 MMOL in Sodium Chloride 0.9% 250 ML 250 ML IV PRN (22:27)
[2019-01-21] MEDS ORDERED: Potassium Phosphate 9 MMOL in Sodium Chloride 0.9% 100 ML IVPB PRN (22:27)
[2019-01-21] MEDS ORDERED: Potassium Phosphate 12 MMOL in Sodium Chloride 0.9% 250 ML 250 ML IV PRN (22:27)
[2019-01-21] MEDS ORDERED: Magnesium 2 GM/50 ML 2 GM in Premix Bag 1 BAG IVPB PRN (22:27)
[2019-01-21] MEDS ORDERED: CCU ELECTROLYTE REPLACEMENT PROTOCOL FS PRN (22:27)
[2019-01-21] MEDS ORDERED: Chloraseptic Spray 180 ml Bottle PO PRN (22:39)
[2019-01-21 23:26] LABS: BUN (Urea Nitrogen) 19 mg/dL (8.9-20.6); Calc. Creatinine Clearance 72 mL/min (70-130); Chloride 117 mmol/L (98-107); Estimated GFR-MDRD 49; Glucose 227 mg/dL (70-105); Potassium 4.3 mmol/L (3.5-5.1); Sodium 140 mmol/L (136-145)
[2019-01-21 23:32] LABS: Carbon Dioxide Less than 8 mmol/L (22-29)
[2019-01-21] MEDS: D5 1/2 NS w/20 mEq KCL 1,000 ML IV PRN (23:52)
[2019-01-21] MEDS ORDERED: Azithromycin 500 MG in Sodium Chloride 0.9% 250 ML 250 ML IVPB SCH (23:59)
[2019-01-22] MEDS: cefTRIAXone\\ROCEPHIN 1 GM in Sodium Chloride 0.9% 100 ML IVPB SCH (00:09)
[2019-01-22] MEDS ORDERED: Ondansetron PF 4 MG/2 ML Vial SLOW IVP PRN (01:01)
[2019-01-22] MEDS ORDERED: Metoclopramide HCl 10 MG/2 ML VIAL IVP PRN (01:01)
[2019-01-22 02:48] LABS: #Lymphocytes 1.8 thou/uL (1.20-3.40); #Monocytes 1.8 thou/uL (0.11-0.59); #Neutrophils 17.9 thou/uL (1.40-6.50); %Basophils 0.1 % (0.0-1.0); %Eosinophils 0.2 % (0.0-10.0); %Lymphocytes 8.3 % (21.0-51.0); %Monocytes 8.2 % (0.0-10.0); %Neutrophils 83.1 % (42.0-75.0); Hemoglobin 14.5 g/dL (14.0-18.0); Mean Corpuscular HGB CONC 33.3 g/dL (32.0-36.0); Mean Corpuscular Hemoglobin 30.9 pg (27.0-31.0); Mean Corpuscular Volume 92.7 fL (78.0-98.0); Mean Platelet Volume 7.9 fL (7.4-10.4); Platelet Count 223 thou/uL (130-400); Red Blood Cell (RBC) Count 4.71 mill/uL (4.70-6.10); White Blood Cell (WBC) Count 21.5 thou/uL (4.8-10.8)
[2019-01-22 03:05] LABS: Anion Gap 16 mmol/L (10-20); BUN (Urea Nitrogen) 18 mg/dL (8.9-20.6); Calc. Creatinine Clearance 84 mL/min (70-130); Calcium 8.1 mg/dL (7.8-10.44); Chloride 118 mmol/L (98-107); Estimated GFR-MDRD 58; Glucose 224 mg/dL (70-105); Potassium 3.8 mmol/L (3.5-5.1); Sodium 138 mmol/L (136-145)
[2019-01-22 03:16] LABS: Carbon Dioxide 8 mmol/L (22-29)
--- NOTE | 2019-01-22 03:18 | HP ---
CHIEF COMPLAINT: Not feeling well. HISTORY OF PRESENT ILLNESS: This is a 43-year-old male, presenting to the outside facility due to DKA. The patient of note states that he has been taking 25 units of Lantus for the past 3 years, has not had any dose adjustments or changes whatsoever, was diagnosed with diabetes mellitus 3 years ago and apparently has seen an net programmer analyst 6 months ago. The patient had a DKA episode about of 5-6 weeks ago and was advised at that point in time to go to the net programmer analyst to have his insulin evaluated and possibly increased if needed. The patient states that he had been unable to follow up with that and presents today with these complaints. Admits to nausea, no vomiting, however, currently in the ICU and being evaluated. The patient states he is no longer nauseous, actively dry, would like to eat and drink. The patient otherwise denies any other associated complaints. No alleviating or aggravating factors noted. The patient was seen and examined in the ICU. Family at bedside. All questions answered. ALLERGIES: NO KNOWN DRUG ALLERGIES. HOME MEDICATIONS: See MAR. PAST MEDICAL HISTORY: Diabetes mellitus type 2, hypertension, hyperlipidemia. FAMILY HISTORY: Positive for diabetes and hypertension. SOCIAL HISTORY: One pack a day smoker for more than 20 years and social drinker. REVIEW OF SYSTEMS: All systems reviewed. Pertinent positives in HPI, otherwise negative. PHYSICAL EXAMINATION: VITAL SIGNS: Blood pressure 118/101, heart rate of 106, respiratory rate of 18 , O2 saturation of 98% on 2 L nasal cannula, temperature of 97.1. GENERAL: The patient is lying in bed, family in the room. No acute distress. HEENT: Pupils are equal, round, and reactive to light and accommodation. Oral cavity appears dry. Normocephalic and atraumatic. Extraocular muscles are intact. NECK: Supple, mobile, nontender. Thyroid appreciated. CARDIOVASCULAR: Tachycardia, S1 and S2. No murmurs, rubs, or gallops appreciated. RESPIRATORY: Regular respiratory rate. No respiratory distress. No increase in AP diameter. No wheezing, rales, or rhonchi appreciated. ABDOMEN: Positive bowel sounds. Soft, nontender. EXTREMITIES: 2+ peripheral pulses noted. No cyanosis, clubbing, or edema noted. NEUROLOGICAL: Cranial nerves 2 through 12 are intact. No loss of motor or sensory function. LABORATORY DATA: WBC 24, otherwise normal. VBG shows a pH of 6.84, pCO2 of 20 , PO2 of 50. Basic metabolic panel at time of arrival shows sodium of 132, potassium 5.2, bicarb of less than 8, anion gap too numerous to count or calculate, glucose 608. Urinalysis shows elevated ketones, glucosuria, proteinuria, bilirubinuria, hematuria. Beta-hydroxybutyrate at 14.6. ASSESSMENT: 1. Diabetic ketoacidosis. 2. Hypertension. 3. Hyperlipidemia. 4. Proteinuria. 5. Anemia. 6. Pseudohyponatremia. 7. Metabolic acidosis. 8. Leukocytosis. PLAN: Admit to the ICU. Start DKA protocol. We will start the patient on Rocephin and azithromycin given current complains of cough and congestion. We will provide the patient with Chloraseptic spray as well. Repeat labs in the morning. Discontinue insulin drip once the gap is closed, not prior. A1c to be checked as well. The patient advised to follow up with net programmer analyst regularly every 3-4 months at point in time of discharge. The patient otherwise at this point in time is being treated appropriately by the protocol, appears stable, wishes to remain a full code. Case and plan were discussed with the patient and family at length. They understand and agree with this plan. Job ID: [id number] [facility]
[2019-01-22] MEDS ORDERED: Sodium Bicarb 50 MEQ/50 ML Abboject 8.4% SYRINGE IVP SCH (03:45)
[2019-01-22] MEDS: D5 1/2 NS w/20 mEq KCL 1,000 ML IV PRN (04:18)
[2019-01-22 04:36] LABS: Bilirubin Small (Negative); Blood, Urine Trace (Negative); Clarity CLEAR (Clear); Glucose, Urine (Dipstick) 250 mg/dL (Negative); Leukocyte Negative (Negative); Nitrite Negative (Negative); Protein, Urine (Dipstick) Trace mg/dL (Neg-Trace); Specific Gravity, Urine 1.012 (1.002-1.036); Urobilinogen 0.2 mg/dL (0.2-1.0)
[2019-01-22 04:39] LABS: Bacteria/HPF None Seen HPF (None Seen); Hyaline Casts/LPF 0-3 HYALINE CAST LPF (0-3 Hyaline); Pathc Cast-AUWi Flag 0.27 (0-2.49); RBC/HPF 0-3 HPF (0-3); Squamous Epithelial 0-3 HPF (0-3); WBC/HPF 0-3 HPF (0-3)
[2019-01-22 04:40] LABS: Yeast-AUWi Flag 25.1 (0-25.0)
[2019-01-22 04:48] LABS: BUN (Urea Nitrogen) 18 mg/dL (8.9-20.6); Calc. Creatinine Clearance 83 mL/min (70-130); Calcium 8.2 mg/dL (7.8-10.44); Chloride 119 mmol/L (98-107); Estimated GFR-MDRD 57; Glucose 219 mg/dL (70-105); Potassium 3.9 mmol/L (3.5-5.1); Sodium 140 mmol/L (136-145)
[2019-01-22 04:51] LABS: Carbon Dioxide Less than 8 mmol/L (22-29)
[2019-01-22 05:04] LABS: Yeast-All Forms None Seen HPF (None Seen)
[2019-01-22] MEDS: HUMULIN R 100 UNITS in Sodium Chloride 0.9% 100 ML IVPB SCH ×2 (06:16→13:11)
[2019-01-22 07:26] LABS: Anion Gap 11 mmol/L (10-20); BUN (Urea Nitrogen) 14 mg/dL (8.9-20.6); Calc. Creatinine Clearance 92 mL/min (70-130); Calcium 8.2 mg/dL (7.8-10.44); Carbon Dioxide 16 mmol/L (22-29); Chloride 115 mmol/L (98-107); Estimated GFR-MDRD 64; Glucose 239 mg/dL (70-105); Potassium 3.3 mmol/L (3.5-5.1); Sodium 139 mmol/L (136-145)
[2019-01-22] MEDS ORDERED: Senokot S 8.6-50 MG TAB PO PRN (07:28)
[2019-01-22] MEDS ORDERED: Sodium Chloride 0.65% Nasal 44 ML BOT EA NARE PRN (07:28)
[2019-01-22] MEDS ORDERED: Diabetic Tussin 200 MG/10 ML UDCUP PO PRN (07:28)
[2019-01-22] MEDS ORDERED: Eucerin (Mineral Oil/Petrolatum,White) 30 gm Jar TOP PRN (07:28)
[2019-01-22] MEDS ORDERED: Calcium Carbonate 500 MG ChewTAB PO PRN (07:28)
[2019-01-22] MEDS ORDERED: Cepastat Lozenges 1 LOZ PO PRN (07:28)
[2019-01-22] MEDS ORDERED: Loperamide HCl 2 MG CAP PO PRN (07:28)
[2019-01-22] MEDS ORDERED: hydrALAZINE 20 MG/ML VIAL SLOW IVP PRN (07:28)
[2019-01-22] MEDS ORDERED: Loratadine 10 MG TAB PO PRN (07:28)
[2019-01-22] MEDS ORDERED: Artificial Tears 18 DROP/0.9 ML EA EYE PRN (07:28)
[2019-01-22] MEDS ORDERED: HYDROcodone/Acetaminophen 5/325 mg Tablet PO PRN (07:28)
[2019-01-22] MEDS ORDERED: D5 1/2 NS w/20 mEq KCL 1,000 ML ONE ×2 (08:34→12:24)
[2019-01-22] MEDS: Bupropion 150 MG XL TAB PO SCH (08:36)
[2019-01-22] MEDS: Rosuvastatin 20 MG TAB PO SCH (08:36)
[2019-01-22] MEDS: Lisinopril 20 MG TAB PO SCH (08:36)
[2019-01-22] MEDS: Heparin 5,000 UNITS/ML VIAL SC SCH ×2 (08:37→20:57)
[2019-01-22 08:54] LABS: Magnesium 1.7 mg/dL (1.6-2.6); Phosphorus Less than 1.0 mg/dL (2.3-4.7)
[2019-01-22] MEDS ORDERED: Non-Formulary Item 1 EACH (Bupropion Hcl [Bupropion Hcl Xl] 300 MG) PO SCH (09:00)
[2019-01-22] MEDS ORDERED: Potassium Phosphate 30 MMOL in Sodium Chloride 0.9% 500 ML IVPB SCH (09:15)
[2019-01-22] MEDS: Insulin Glargine 25 UNITS in Pre-Filled Syringe 1 EACH SC SCH (09:18)
[2019-01-22] MEDS: Bicitra 30 ML UDCUP PO SCH ×3 (09:19→21:01)
--- NOTE | 2019-01-22 10:31 | CON ---
DATE OF CONSULTATION: HISTORY OF PRESENT ILLNESS: He is a 43-year-old gentleman with known history of diabetes. is at the bedside, who states that they recently moved from [place] to [place], was stressed, also stated he was doing good, then noticed not feeling well, breathing rapidly. Change in mental status. His blood sugar measured was greater than 500, came to the ER, in the ICU on insulin drip. Recently discharged from the hospital about a month ago. PAST MEDICAL HISTORY: Diabetes and hypertension. PAST SURGICAL HISTORY: None. SOCIAL HISTORY: Tobacco, still smokes. Alcohol, none. Substance abuse, none. HOME MEDICATIONS: Include, 1. Metformin 1000 twice a day. 2. Bupropion XL 300 once a day. 3. Crestor 20. 4. Lisinopril 20. 5. Lantus 25 once a day. 6. Apparently has asthma, uses albuterol p.r.n. He is presently on insulin drip at 20 units an hour. He was started on broad-spectrum antibiotics last night. PHYSICAL EXAMINATION: VITAL SIGNS: Blood pressure 160/86, pulse 107, respirations 10, and sats 100%. GENERAL: He is awake, alert, and responsive. CHEST: No wheezing or crackles. CARDIAC: Normal S1 and S2. No gallops. ABDOMEN: No masses. LABORATORY DATA: Blood sugar is 217. His bicarb is still 16. Phosphorus is low at 1.0, magnesium 1.7. Chest x-ray shows no acute infiltrates. His white count was 21,000, hemoglobin and hematocrit 14 and 43, platelet count was 223. Creatinine is 1.24. ASSESSMENT: 1. Uncontrolled diabetes. 2. Mild azotemia. 3. Elevated white count. 4. Hypertension. 5. History of asthma. Continue insulin. I will restart long-acting Lantus. Pulmonary Critical Care will follow in the ICU. Empiric antibiotics, deescalate once cultures are back. Consultation note, 70 minutes, 50% direct patient care. Job ID: [id number]
--- NOTE | 2019-01-22 11:19 | PDOC.PN ---
- Subjective Encounter Start Date: 01/22/19 Encounter Start Time: 10:10 -: old records requested/rev Patient seen and examined. No new complaints. No overnight events - Objective Resuscitation Status - Order Detail: 01/21/19 22:23 Resuscitation Status Routine Resuscitation Status: FULL: Full Resuscitation Discussed with: family MAR Reviewed: Yes Vital Signs & Weight: Vital Signs (12 hours) Temp BP Pulse Ox 01/22/19 11:00 98.1 F 01/22/19 08:36 160/86 H 01/22/19 08:00 100 01/22/19 07:00 98.0 F 01/22/19 04:00 98.0 F 01/22/19 00:00 98.3 F Weight Weight 182 lb 12.211 oz Most Recent Monitor Data Heart Rate from ECG 104 NIBP 125/74 NIBP BP-Mean 91 Respiration from ECG 14 SpO2 100 I&O: 01/21/19 01/22/19 01/23/19 06:59 06:59 06:59 Intake Total 2369.2 450 Output Total 2075 875 Balance 294.2 -425 Result Diagrams: 01/22/19 02:37 01/22/19 06:36 Additional Labs: Accuchecks 01/22/19 01/22/19 01/22/19 10:58 10:07 09:17 POC Glucose 183 H 221 H 236 H 01/22/19 01/22/19 01/22/19 07:58 06:58 06:01 POC Glucose 217 H 217 H 236 H 01/22/19 01/22/19 01/22/19 04:58 04:00 03:22 POC Glucose 208 H 239 H 196 H 01/22/19 01/22/19 01/22/19 02:07 01:14 00:03 POC Glucose 183 H 206 H 212 H 01/21/19 01/21/19 01/21/19 23:11 22:29 20:57 POC Glucose 210 H 230 H 314 H 01/21/19 01/21/19 01/21/19 19:54 18:38 17:11 POC Glucose 372 H 426 H Greater than 550 H* EKG Reviewed by me: Yes Phys Exam - Physical Examination Constitutional: NAD HEENT: PERRLA, moist MMs, sclera anicteric Neck: no JVD, supple Respiratory: no wheezing, no rales, no rhonchi Cardiovascular: RRR, no significant murmur, no rub Gastrointestinal: soft, non-tender, no distention, positive bowel sounds Musculoskeletal: no edema, pulses present Neurological: non-focal, normal sensation, moves all 4 limbs Lymphatic: no nodes Psychiatric: normal affect, A&O x 3 Skin: no rash, normal turgor Dx/Plan (1) Abnormal blood electrolyte level Code(s): E87.8 - OTH DISORDERS OF ELECTROLYTE AND FLUID BALANCE, NEC Status: Acute (2) Acute kidney failure Status: Acute (3) DKA (diabetic ketoacidoses) Code(s): E13.10 - OTH DIABETES MELLITUS WITH KETOACIDOSIS WITHOUT COMA Status : Acute (4) Dyslipidemia Code(s): E78.5 - HYPERLIPIDEMIA, UNSPECIFIED Status: Chronic (5) Hypertension Code(s): I10 - ESSENTIAL (PRIMARY) HYPERTENSION Status: Chronic (6) PTSD (post-traumatic stress disorder) Code(s): F43.10 - POST-TRAUMATIC STRESS DISORDER, UNSPECIFIED Status: Chronic (7) Leucocytosis Code(s): D72.829 - ELEVATED WHITE BLOOD CELL COUNT, UNSPECIFIED Status: Acute - Plan cont current plan of care * currently on empiric rocephin and azithromycin * anion gap closed but still has acidosis, ketosis improving * today will start basal insulin and overlap with insulin drip for few hours * replace potassium phosphate * will repeat bmp, betaOH at 1 pm and then decide to stop insulin drip * medication reviewed as below * symptomatic treatment. * continue current ivf Review of Systems - Review of Systems ENT: negative: Ear Pain, Ear Discharge, Nose Pain, Nose Discharge, Nose Congestion, Mouth Pain, Mouth Swelling, Throat Pain, Throat Swelling, Other Respiratory: negative: Cough, Dry, Shortness of Breath, Hemoptysis, SOB with Excertion, Pleuritic Pain, Sputum, Wheezing Cardiovascular: negative: chest pain, palpitations, orthopnea, paroxysmal nocturnal dyspnea, edema, light headedness, other Gastrointestinal: negative: Nausea, Vomiting, Abdominal Pain, Diarrhea, Constipation, Melena, Hematochezia, Other Genitourinary: negative: Dysuria, Frequency, Incontinence, Hematuria, Retention , Other Musculoskeletal: negative: Neck Pain, Shoulder Pain, Arm Pain, Back Pain, Hand Pain, Leg Pain, Foot Pain, Other Skin: negative: Rash, Lesions, Nathaniel, Bruising, Other - Medications/Allergies Allergies/Adverse Reactions: Allergies Allergy/AdvReac Type Severity Reaction Status Date / Time No Known Drug Allergies Allergy Verified 08/30/15 00:55 Medications: Current Medications Acetaminophen (Tylenol) 500 mg PO Q6H PRN PRN Reason: Mild Pain (1-3) Hydrocodone Bitart/Acetaminophen ([place] 5/325) 1 tab PO Q4H PRN PRN Reason: Moderate Pain (4-6) Artificial Tears (Tears Naturale) 2 drop EA EYE PRN PRN PRN Reason: Dry Eyes Bupropion HCl (Wellbutrin Xl) 300 mg PO DAILY [facility] Last Admin: 01/22/19 08:36 Dose: 300 mg Calcium Carbonate (Tums) 1,000 mg PO Q4H PRN PRN Reason: Heartburn or Indigestion Citric Acid/Sodium Citrate (Bicitra) 30 ml PO TID [facility] Last Admin: 01/22/19 09:19 Dose: 30 ml Guaifenesin (Robitussin Sf) 200 mg PO Q4H PRN PRN Reason: Cough Heparin Sodium (Porcine) (Heparin) 5,000 units SC BID [facility] Last Admin: 01/22/19 08:37 Dose: 5,000 units Hydralazine HCl (Apresoline) 10 mg SLOW IVP Q4H PRN PRN Reason: SBP > 180 and HR < 70 Insulin Human Regular 100 (units/ Sodium Chloride) 101 mls @ 0 mls/hr IVPB INF [facility]; Protocol Last Admin: 01/22/19 06:16 Dose: 101 mls Azithromycin 500 mg/ Sodium (Chloride) 250 mls @ 250 mls/hr IVPB Q24HR [facility] Last Admin: 01/22/19 00:09 Dose: 250 mls Ceftriaxone Sodium 1 gm/ (Sodium Chloride) 100 mls @ 200 mls/hr IVPB Q24HR [facility] Last Admin: 01/22/19 00:09 Dose: 100 mls Insulin Glargine 25 units/ (Miscellaneous Medication) 0.25 mls @ 0 mls[facility] Last Admin: 01/22/19 09:18 Dose: 0.25 mls Potassium Phosphate 30 mmol/ (Sodium Chloride) 510 mls @ 83.3 mls/hr IVPB NOW [facility] Stop: 01/22/19 17:15 Last Admin: 01/22/19 09:57 Dose: 510 mls Lisinopril (Zestril) 20 mg PO DAILY [facility] Last Admin: 01/22/19 08:36 Dose: 20 mg Loperamide HCl (Imodium) 2 mg PO PRN PRN PRN Reason: Diarrhea/Loose Stools Loratadine (Claritin) 10 mg PO DAILYPRN PRN PRN Reason: Sinus Symptoms Metoclopramide HCl (Reglan) 10 mg IVP Q6H PRN PRN Reason: Nausea/Vomiting Mineral Oil/White Petrolatum (Eucerin Cream) 0 gm TOP BIDPRN PRN PRN Reason: Dry Skin Ondansetron HCl (Zofran) 4 mg SLOW IVP Q6H PRN PRN Reason: Nausea/Vomiting Last Admin: 01/22/19 01:08 Dose: 4 mg Phenol (Chloraseptic [place] [address] Ml Bot) 5 ml PO BIDPRN PRN PRN Reason: Sore Throat Last Admin: 01/21/19 23:05 Dose: 1 spr Rosuvastatin Calcium (Crestor) 20 mg PO DAILY [facility] Last Admin: 01/22/19 08:36 Dose: 20 mg Senna/Docusate Sodium (Senokot S) 2 tab PO BID PRN PRN Reason: Constipation Sodium Chloride ([place] 0.65%) 0 ml EA NARE QIDPRN PRN PRN Reason: Nasal Congestion Sodium Chloride (Flush - Normal Saline) 10 ml IVF Q12HR [facility] Last Admin: 01/22/19 08:38 Dose: 10 ml Sodium Chloride (Flush - Normal Saline) 10 ml IVF PRN PRN PRN Reason: Saline Flush Throat Lozenges (Cepastat Lozenges) 1 jayant PO Q2H PRN PRN Reason: Sore Throat Zolpidem Tartrate (Ambien) 5 mg PO HSPRN PRN PRN Reason: Insomnia
[2019-01-22] MEDS: D5 1/2 NS w/20 mEq KCL 1,000 ML IV SCH ×2 (12:41→16:30)
[2019-01-22] MEDS: Acetaminophen 500 MG TAB PO PRN ×2 (13:06→21:38)
[2019-01-22] MEDS ORDERED: Dextrose 5% in Water 1,000 ML IV PRN (18:21)
[2019-01-22] MEDS ORDERED: HumaLOG 300 UNITS/3 ML VIAL SC PRN (18:21)
[2019-01-22] MEDS ORDERED: Dextrose 50% Abboject 50 ML SYRINGE SLOW IVP PRN (18:21)
[2019-01-22] MEDS: HumaLOG 300 UNITS/3 ML VIAL SC PRN (20:58)
[2019-01-23] MEDS: cefTRIAXone\\ROCEPHIN 1 GM in Sodium Chloride 0.9% 100 ML IVPB SCH ×2 (00:23→22:20)
[2019-01-23] MEDS: HumaLOG 300 UNITS/3 ML VIAL SC PRN ×2 (05:42→11:12)
[2019-01-23 08:24] LABS: #Basophils 0.1 thou/uL (0.0-0.2); #Eosinphils 0.2 thou/uL (0.0-0.7); #Lymphocytes 3.3 thou/uL (1.20-3.40); #Monocytes 0.8 thou/uL (0.11-0.59); #Neutrophils 6.3 thou/uL (1.40-6.50); %Basophils 0.8 % (0.0-1.0); %Eosinophils 1.9 % (0.0-10.0); %Lymphocytes 30.7 % (21.0-51.0); %Monocytes 7.6 % (0.0-10.0); %Neutrophils 58.9 % (42.0-75.0); Hemoglobin 13.8 g/dL (14.0-18.0); Mean Corpuscular HGB CONC 34.6 g/dL (32.0-36.0); Mean Corpuscular Volume 89.4 fL (78.0-98.0); Mean Platelet Volume 8.1 fL (7.4-10.4); Platelet Count 187 thou/uL (130-400); RBC Distribution Width 13.1 % (11.5-14.5); Red Blood Cell (RBC) Count 4.45 mill/uL (4.70-6.10); White Blood Cell (WBC) Count 10.6 thou/uL (4.8-10.8)
[2019-01-23] MEDS: Rosuvastatin 20 MG TAB PO SCH (08:47)
[2019-01-23] MEDS: Insulin Glargine 25 UNITS in Pre-Filled Syringe 1 EACH SC SCH (08:48)
[2019-01-23] MEDS: Heparin 5,000 UNITS/ML VIAL SC SCH ×2 (08:48→20:43)
[2019-01-23] MEDS: Lisinopril 20 MG TAB PO SCH (08:48)
[2019-01-23] MEDS: Bupropion 150 MG XL TAB PO SCH (08:51)
[2019-01-23] MEDS: Bicitra 30 ML UDCUP PO SCH ×3 (08:51→20:42)
[2019-01-23 08:53] LABS: Anion Gap 11 mmol/L (10-20); BUN (Urea Nitrogen) 7 mg/dL (8.9-20.6); Calc. Creatinine Clearance 139 mL/min (70-130); Carbon Dioxide 23 mmol/L (22-29); Chloride 110 mmol/L (98-107); Estimated GFR-MDRD Greater than 90; Glucose 181 mg/dL (70-105); Magnesium 1.6 mg/dL (1.6-2.6); Phosphorus 1.8 mg/dL (2.3-4.7); Potassium 2.9 mmol/L (3.5-5.1); Sodium 141 mmol/L (136-145)
[2019-01-23] MEDS ORDERED: Potassium Phosphate 30 MMOL in Sodium Chloride 0.9% 500 ML IVPB SCH (09:00)
[2019-01-23] MEDS ORDERED: Potassium Chloride 20 MEQ TAB PO SCH (09:00)
[2019-01-23] MEDS ORDERED: Azithromycin 250 MG TAB PO SCH (09:30)
--- NOTE | 2019-01-23 09:58 | PDOC.PN ---
- Subjective Encounter Start Date: 01/23/19 Encounter Start Time: 08:50 Patient seen and examined. No new complaints. No overnight events - Objective Resuscitation Status - Order Detail: 01/21/19 22:23 Resuscitation Status Routine Resuscitation Status: FULL: Full Resuscitation Discussed with: family ROSALIO Reviewed: Yes Vital Signs & Weight: Vital Signs (12 hours) Temp Pulse Resp BP BP Pulse Ox 01/23/19 08:48 160/86 H 01/23/19 07:44 98.1 F 88 16 118/74 97 01/23/19 05:00 98.7 F 94 17 109/72 95 01/23/19 00:01 98.8 F 96 17 113/66 99 Weight Weight 182 lb 12.211 oz Most Recent Monitor Data Heart Rate from ECG 95 NIBP 127/80 NIBP BP-Mean 95 Respiration from ECG 6 SpO2 100 I&O: 01/22/19 01/23/19 01/24/19 06:59 06:59 06:59 Intake Total 2369.2 1660 Output Total 2075 2460 Balance 294.2 -800 Result Diagrams: 01/23/19 07:55 01/23/19 07:55 Additional Labs: Accuchecks 01/23/19 01/22/19 01/22/19 05:41 20:59 17:55 POC Glucose 211 H 185 H 138 H 01/22/19 01/22/19 01/22/19 17:02 16:16 15:01 POC Glucose 98 129 H 142 H 01/22/19 01/22/19 01/22/19 14:12 12:57 12:12 POC Glucose 172 H 242 H 207 H 01/22/19 01/22/19 10:58 10:07 POC Glucose 183 H 221 H Phys Exam - Physical Examination Constitutional: NAD HEENT: PERRLA, moist MMs, sclera anicteric Neck: no JVD, supple Respiratory: no wheezing, no rales, no rhonchi Cardiovascular: RRR, no significant murmur, no rub Gastrointestinal: soft, non-tender, no distention, positive bowel sounds Musculoskeletal: no edema, pulses present Neurological: non-focal, normal sensation, moves all 4 limbs Lymphatic: no nodes Psychiatric: normal affect, A&O x 3 Skin: no rash, normal turgor Dx/Plan (1) Abnormal blood electrolyte level Code(s): E87.8 - OTH DISORDERS OF ELECTROLYTE AND FLUID BALANCE, NEC Status: Acute (2) Acute kidney failure Status: Resolved (3) DKA (diabetic ketoacidoses) Code(s): E13.10 - OTH DIABETES MELLITUS WITH KETOACIDOSIS WITHOUT COMA Status : Resolved (4) Dyslipidemia Code(s): E78.5 - HYPERLIPIDEMIA, UNSPECIFIED Status: Chronic (5) Hypertension Code(s): I10 - ESSENTIAL (PRIMARY) HYPERTENSION Status: Chronic (6) PTSD (post-traumatic stress disorder) Code(s): F43.10 - POST-TRAUMATIC STRESS DISORDER, UNSPECIFIED Status: Chronic (7) Leucocytosis Code(s): D72.829 - ELEVATED WHITE BLOOD CELL COUNT, UNSPECIFIED Status: Resolved - Plan cont current plan of care, continue antibiotics * replace potassium phosphate * give KCL * repeat labs tomorrow * medication reviewed as below * symptomatic treatment. * continue rocephin and po azithromycin Review of Systems - Review of Systems ENT: Nose Congestion. negative: Ear Pain, Ear Discharge, Nose Pain, Nose Discharge, Mouth Pain, Mouth Swelling, Throat Pain, Throat Swelling, Other Respiratory: Cough. negative: Dry, Shortness of Breath, Hemoptysis, SOB with Excertion, Pleuritic Pain, Sputum, Wheezing Cardiovascular: negative: chest pain, palpitations, orthopnea, paroxysmal nocturnal dyspnea, edema, light headedness, other Gastrointestinal: negative: Nausea, Vomiting, Abdominal Pain, Diarrhea, Constipation, Melena, Hematochezia, Other Genitourinary: negative: Dysuria, Frequency, Incontinence, Hematuria, Retention , Other Musculoskeletal: negative: Neck Pain, Shoulder Pain, Arm Pain, Back Pain, Hand Pain, Leg Pain, Foot Pain, Other - Medications/Allergies Allergies/Adverse Reactions: Allergies Allergy/AdvReac Type Severity Reaction Status Date / Time No Known Drug Allergies Allergy Verified 08/30/15 00:55 Medications: Current Medications Acetaminophen (Tylenol) 500 mg PO Q6H PRN PRN Reason: Mild Pain (1-3) Last Admin: 01/22/19 21:38 Dose: 500 mg Hydrocodone Bitart/Acetaminophen ([place] 5/325) 1 tab PO Q4H PRN PRN Reason: Moderate Pain (4-6) Azithromycin (Zithromax) 250 mg PO DAILY [facility] Stop: 01/27/19 09:01 Bupropion HCl (Wellbutrin Xl) 300 mg PO DAILY [facility] Last Admin: 01/23/19 08:51 Dose: 300 mg Calcium Carbonate (Tums) 1,000 mg PO Q4H PRN PRN Reason: Heartburn or Indigestion Citric Acid/Sodium Citrate (Bicitra) 30 ml PO TID [facility] Last Admin: 01/23/19 08:51 Dose: 30 ml Dextrose/Water (Dextrose 50%) 25 gm SLOW IVP PRN PRN PRN Reason: Hypoglycemia Glucagon (Glucagon) 1 mg IM PRN PRN PRN Reason: Hypoglycemia Guaifenesin (Robitussin Sf) 200 mg PO Q4H PRN PRN Reason: Cough Last Admin: 01/23/19 08:58 Dose: 200 mg Heparin Sodium (Porcine) (Heparin) 5,000 units SC BID [facility] Last Admin: 01/23/19 08:48 Dose: 5,000 units Hydralazine HCl (Apresoline) 10 mg SLOW IVP Q4H PRN PRN Reason: SBP > 180 and HR < 70 Ceftriaxone Sodium 1 gm/ (Sodium Chloride) 100 mls @ 200 mls/hr IVPB Q24HR [facility] Last Admin: 01/23/19 00:23 Dose: 100 mls Insulin Glargine 25 units/ (Miscellaneous Medication) 0.25 mls @ 0 mls/hr SC QAM [facility] Last Admin: 01/23/19 08:48 Dose: 0.25 mls Dextrose/Water (D5w) 1,000 mls @ 0 mls/hr IV .Q0M PRN PRN Reason: Hypoglycemia Potassium Phosphate 30 mmol/ (Sodium Chloride) 510 mls @ 83.3 mls/hr IVPB ONE [facility] Stop: 01/23/19 16:00 Insulin Human Lispro (Humalog) 0 units SC .MODERATE SLIDING SC PRN PRN Reason: Moderate Correctional Scale Last Admin: 01/23/19 05:42 Dose: 4 unit Insulin Human Lispro (Humalog) 0 units SC .BEDTIME SLIDING SC PRN PRN Reason: Bedtime Correctional Scale Lisinopril (Zestril) 20 mg PO DAILY [facility] Last Admin: 01/23/19 08:48 Dose: 20 mg Loperamide HCl (Imodium) 2 mg PO PRN PRN PRN Reason: Diarrhea/Loose Stools Loratadine (Claritin) 10 mg PO DAILYPRN PRN PRN Reason: Sinus Symptoms Metoclopramide HCl (Reglan) 10 mg IVP Q6H PRN PRN Reason: Nausea/Vomiting Mineral Oil/White Petrolatum (Eucerin Cream) 0 gm TOP BIDPRN PRN PRN Reason: Dry Skin Ondansetron HCl (Zofran) 4 mg SLOW IVP Q6H PRN PRN Reason: Nausea/Vomiting Last Admin: 01/22/19 01:08 Dose: 4 mg Phenol (Chloraseptic [place] 180 Ml Bot) 5 ml PO BIDPRN PRN PRN Reason: Sore Throat Last Admin: 01/21/19 23:05 Dose: 1 spr Potassium Chloride (K-Dur) 40 meq PO ONE [facility] Stop: 01/23/19 11:00 Rosuvastatin Calcium (Crestor) 20 mg PO DAILY [facility] Last Admin: 01/23/19 08:47 Dose: 20 mg Senna/Docusate Sodium (Senokot S) 2 tab PO BID PRN PRN Reason: Constipation Sodium Chloride ([place] Nasal [place] 0.65%) 0 ml EA NARE QIDPRN PRN PRN Reason: Nasal Congestion Sodium Chloride (Flush - Normal Saline) 10 ml IVF Q12HR [facility] Last Admin: 01/23/19 08:52 Dose: 10 ml Sodium Chloride (Flush - Normal Saline) 10 ml IVF PRN PRN PRN Reason: Saline Flush Last Admin: 01/22/19 16:30 Dose: 10 ml Throat Lozenges (Cepastat Lozenges) 1 jayant PO Q2H PRN PRN Reason: Sore Throat Zolpidem Tartrate (Ambien) 5 mg PO HSPRN PRN PRN Reason: Insomnia
--- NOTE | 2019-01-23 15:48 | PRG ---
DATE OF SERVICE: 01/23/2019 SERVICE: Pulmonary Medicine. INTERVAL HISTORY: The patient is doing really well from respiratory standpoint. Denies any current chest pain, fevers, or chills. He has essentially returned to his usual state of health. He has a great appetite. He is tolerating p.o. just fine. He did not have any focalizing symptoms that would suggest where he has an infection coming from. OBJECTIVE: VITAL SIGNS: Afebrile. Pulse 88, blood pressure 126/81, respirations 18, and saturation 97% on room air. GENERAL: The patient is awake and alert, in no apparent distress. LUNGS: Decent air entry with no prolonged expiratory phase or wheezing. I do not appreciate any rhonchi or crackles. HEART: Normal rate and regular. ABDOMEN: Soft, nontender, and nondistended. Bowel sounds are positive. MUSCULOSKELETAL: No cyanosis or clubbing. There is no pitting in the bilateral lower extremities. NEUROLOGIC: Grossly nonfocal. LABORATORY DATA: WBC 10.6, hemoglobin 13.8, and platelets 187,000. Potassium 2.9. Basic metabolic profile is otherwise unremarkable. Magnesium falls within the lower limits, and phosphorus is 1.8. Blood sugars ranged from 181 to 315. Urinalysis is positive for proteinuria, and glycosuria, which is significantly improved. Beta-hydroxybutyrate is 0.17, back into the normal range. ASSESSMENT: 1. Diabetic ketoacidosis. 2. Hypokalemia. DISCUSSION AND PLAN: The patient is doing absolutely fantastic from a metabolic standpoint. We will replace the potassium and phosphorus. At this point, he has no further requirements for inpatient Pulmonary Critical Care opinion, and we will sign off. Please call with additional questions or concerns through time. Job ID: [id number]
[2019-01-24] MEDS: HumaLOG 300 UNITS/3 ML VIAL SC PRN ×2 (05:57→12:02)
[2019-01-24 07:14] VITALS: TEMP 98
[2019-01-24 07:24] LABS: Anion Gap 10 mmol/L (10-20); BUN (Urea Nitrogen) 8 mg/dL (8.9-20.6); Calc. Creatinine Clearance 152 mL/min (70-130); Calcium 8.9 mg/dL (7.8-10.44); Carbon Dioxide 30 mmol/L (22-29); Chloride 104 mmol/L (98-107); Estimated GFR-MDRD Greater than 90; Glucose 177 mg/dL (70-105); Phosphorus 3.7 mg/dL (2.3-4.7); Potassium 2.8 mmol/L (3.5-5.1); Sodium 141 mmol/L (136-145)
[2019-01-24] MEDS ORDERED: Potassium Chloride 20 MEQ TAB PO SCH (07:30)
[2019-01-24] MEDS: Rosuvastatin 20 MG TAB PO SCH (08:13)
[2019-01-24] MEDS: Lisinopril 20 MG TAB PO SCH (08:14)
[2019-01-24] MEDS: Bupropion 150 MG XL TAB PO SCH (08:14)
[2019-01-24] MEDS ORDERED: Potassium Chloride 20 MEQ/100 ML PREMIX BAG IVPB SCH (08:15)
[2019-01-24] MEDS: Insulin Glargine 25 UNITS in Pre-Filled Syringe 1 EACH SC SCH (08:16)
[2019-01-24 08:21] VITALS: BP 160/86
[2019-01-24] MEDS: Heparin 5,000 UNITS/ML VIAL SC SCH (08:21)
[2019-01-24] MEDS: Bicitra 30 ML UDCUP PO SCH ×2 (08:58→14:11)
[2019-01-24] MEDS ORDERED: Azithromycin 250 MG TAB PO SCH (09:00)
--- NOTE | 2019-01-24 09:55 | PDOC.PN ---
- Subjective Encounter Start Date: 01/24/19 Encounter Start Time: 07:30 Patient seen and examined. No new complaints. No overnight events - Objective Resuscitation Status - Order Detail: 01/21/19 22:23 Resuscitation Status Routine Resuscitation Status: FULL: Full Resuscitation Discussed with: family ROSALIO Reviewed: Yes Vital Signs & Weight: Vital Signs (12 hours) Temp Pulse Resp BP BP Pulse Ox 01/24/19 08:14 160/86 H 01/24/19 07:07 98 F 79 18 127/86 98 Weight Weight 182 lb 12.211 oz Most Recent Monitor Data Heart Rate from ECG 95 NIBP 127/80 NIBP BP-Mean 95 Respiration from ECG 6 SpO2 100 I&O: 01/23/19 01/24/19 01/25/19 06:59 06:59 06:59 Intake Total 1660 960 Output Total 2460 Balance -800 960 Result Diagrams: 01/23/19 07:55 01/24/19 06:23 Additional Labs: Accuchecks 01/24/19 01/23/19 01/23/19 04:54 19:57 16:29 POC Glucose 185 H 191 H 154 H 01/23/19 11:06 POC Glucose 315 H Phys Exam - Physical Examination Constitutional: NAD HEENT: PERRLA, moist MMs, sclera anicteric Neck: no JVD, supple Respiratory: no wheezing, no rales, no rhonchi Cardiovascular: RRR, no significant murmur, no rub Gastrointestinal: soft, non-tender, no distention, positive bowel sounds Musculoskeletal: no edema, pulses present Neurological: non-focal, normal sensation, moves all 4 limbs Lymphatic: no nodes Psychiatric: normal affect, A&O x 3 Skin: no rash, normal turgor Dx/Plan (1) Abnormal blood electrolyte level Code(s): E87.8 - OTH DISORDERS OF ELECTROLYTE AND FLUID BALANCE, NEC Status: Acute (2) Acute kidney failure Status: Resolved (3) DKA (diabetic ketoacidoses) Code(s): E13.10 - OTH DIABETES MELLITUS WITH KETOACIDOSIS WITHOUT COMA Status : Resolved (4) Dyslipidemia Code(s): E78.5 - HYPERLIPIDEMIA, UNSPECIFIED Status: Chronic (5) Hypertension Code(s): I10 - ESSENTIAL (PRIMARY) HYPERTENSION Status: Chronic (6) PTSD (post-traumatic stress disorder) Code(s): F43.10 - POST-TRAUMATIC STRESS DISORDER, UNSPECIFIED Status: Chronic (7) Leucocytosis Code(s): D72.829 - ELEVATED WHITE BLOOD CELL COUNT, UNSPECIFIED Status: Resolved - Plan cont current plan of care * medication reviewed as below * symptomatic treatment. * see discharge summery * replace potassium before discharge. Review of Systems - Review of Systems ENT: negative: Ear Pain, Ear Discharge, Nose Pain, Nose Discharge, Nose Congestion, Mouth Pain, Mouth Swelling, Throat Pain, Throat Swelling, Other Respiratory: negative: Cough, Dry, Shortness of Breath, Hemoptysis, SOB with Excertion, Pleuritic Pain, Sputum, Wheezing Cardiovascular: negative: chest pain, palpitations, orthopnea, paroxysmal nocturnal dyspnea, edema, light headedness, other Gastrointestinal: negative: Nausea, Vomiting, Abdominal Pain, Diarrhea, Constipation, Melena, Hematochezia, Other Genitourinary: negative: Dysuria, Frequency, Incontinence, Hematuria, Retention , Other Musculoskeletal: negative: Neck Pain, Shoulder Pain, Arm Pain, Back Pain, Hand Pain, Leg Pain, Foot Pain, Other - Medications/Allergies Allergies/Adverse Reactions: Allergies Allergy/AdvReac Type Severity Reaction Status Date / Time No Known Drug Allergies Allergy Verified 08/30/15 00:55 Medications: Current Medications Acetaminophen (Tylenol) 500 mg PO Q6H PRN PRN Reason: Mild Pain (1-3) Last Admin: 01/22/19 21:38 Dose: 500 mg Hydrocodone Bitart/Acetaminophen ([place] 5/325) 1 tab PO Q4H PRN PRN Reason: Moderate Pain (4-6) Azithromycin (Zithromax) 250 mg PO DAILY [facility] Stop: 01/27/19 09:01 Last Admin: 01/24/19 08:13 Dose: 250 mg Bupropion HCl (Wellbutrin Xl) 300 mg PO DAILY [facility] Last Admin: 01/24/19 08:14 Dose: 300 mg Calcium Carbonate (Tums) 1,000 mg PO Q4H PRN PRN Reason: Heartburn or Indigestion Citric Acid/Sodium Citrate (Bicitra) 30 ml PO TID [facility] Last Admin: 01/24/19 08:58 Dose: Not Given Dextrose/Water (Dextrose 50%) 25 gm SLOW IVP PRN PRN PRN Reason: Hypoglycemia Glucagon (Glucagon) 1 mg IM PRN PRN PRN Reason: Hypoglycemia Guaifenesin (Robitussin Sf) 200 mg PO Q4H PRN PRN Reason: Cough Last Admin: 01/23/19 08:58 Dose: 200 mg Heparin Sodium (Porcine) (Heparin) 5,000 units SC BID [facility] Last Admin: 01/24/19 08:21 Dose: 5,000 units Hydralazine HCl (Apresoline) 10 mg SLOW IVP Q4H PRN PRN Reason: SBP > 180 and HR < 70 Ceftriaxone Sodium 1 gm/ (Sodium Chloride) 100 mls @ 200 mls/hr IVPB Q24HR [facility] Last Admin: 01/23/19 22:20 Dose: 100 mls Insulin Glargine 25 units/ (Miscellaneous Medication) 0.25 mls @ 0 mls/hr SC QAM [facility] Last Admin: 01/24/19 08:16 Dose: 0.25 mls Dextrose/Water (D5w) 1,000 mls @ 0 mls/hr IV .Q0M PRN PRN Reason: Hypoglycemia Insulin Human Lispro (Humalog) 0 units SC .MODERATE SLIDING SC PRN PRN Reason: Moderate Correctional Scale Last Admin: 01/24/19 05:57 Dose: 2 unit Insulin Human Lispro (Humalog) 0 units SC .BEDTIME SLIDING SC PRN PRN Reason: Bedtime Correctional Scale Lisinopril (Zestril) 20 mg PO DAILY [facility] Last Admin: 01/24/19 08:14 Dose: 20 mg Loperamide HCl (Imodium) 2 mg PO PRN PRN PRN Reason: Diarrhea/Loose Stools Loratadine (Claritin) 10 mg PO DAILYPRN PRN PRN Reason: Sinus Symptoms Metoclopramide HCl (Reglan) 10 mg IVP Q6H PRN PRN Reason: Nausea/Vomiting Mineral Oil/White Petrolatum (Eucerin Cream) 0 gm TOP BIDPRN PRN PRN Reason: Dry Skin Ondansetron HCl (Zofran) 4 mg SLOW IVP Q6H PRN PRN Reason: Nausea/Vomiting Last Admin: 01/22/19 01:08 Dose: 4 mg Phenol (Chloraseptic [place] 180 Ml Bot) 5 ml PO BIDPRN PRN PRN Reason: Sore Throat Last Admin: 01/21/19 23:05 Dose: 1 spr Potassium Chloride (K-Dur) 40 meq PO ONE [facility] Stop: 01/24/19 10:00 Last Admin: 01/24/19 08:14 Dose: 40 meq Potassium Chloride (Kcl) 20 meq IVPB NOW [facility] Stop: 01/24/19 12:00 Last Admin: 01/24/19 08:54 Dose: 20 meq Rosuvastatin Calcium (Crestor) 20 mg PO DAILY [facility] Last Admin: 01/24/19 08:13 Dose: 20 mg Senna/Docusate Sodium (Senokot S) 2 tab PO BID PRN PRN Reason: Constipation Sodium Chloride ([place] Nasal [place] 0.65%) 0 ml EA NARE QIDPRN PRN PRN Reason: Nasal Congestion Sodium Chloride (Flush - Normal Saline) 10 ml IVF Q12HR [facility] Last Admin: 01/24/19 08:54 Dose: 10 ml Sodium Chloride (Flush - Normal Saline) 10 ml IVF PRN PRN PRN Reason: Saline Flush Last Admin: 01/22/19 16:30 Dose: 10 ml Throat Lozenges (Cepastat Lozenges) 1 jayant PO Q2H PRN PRN Reason: Sore Throat Zolpidem Tartrate (Ambien) 5 mg PO HSPRN PRN PRN Reason: Insomnia
--- NOTE | 2019-01-24 11:20 | DIS ---
DATE OF ADMISSION: 01/21/2019 DATE OF DISCHARGE: 01/24/2019 PRIMARY CARE PHYSICIAN: [facility] Call Admission. DISCHARGE DISPOSITION: Home. PRIMARY DISCHARGE DIAGNOSES: 1. Diabetic ketoacidosis. 2. Acute kidney failure. 3. Abnormal blood electrolytes. 4. Leukocytosis. SECONDARY DISCHARGE DIAGNOSES: 1. Diabetes type 1, insulin requiring. 2. Posttraumatic stress disorder. 3. Hypertension. 4. Dyslipidemia. PRIMARY PROCEDURE/OPERATION: None. RADIOLOGICAL INVESTIGATION: Chest x-ray, unremarkable. SIGNIFICANT LABORATORY DATA: WBC 10.6, hemoglobin 13.8, platelet 187. Sodium 141, potassium 2.8, creatinine 0.75. DISCHARGE MEDICATIONS: 1. ProAir HFA one puff q.4 hourly p.r.n. 2. Lantus 25 units subcu at bedtime. 3. Lisinopril 20 mg p.o. daily. 4. Crestor 20 mg p.o. daily. 5. Azithromycin 250 mg p.o. daily. 6. Wellbutrin 300 mg p.o. daily. 7. Metformin 1000 mg p.o. b.i.d. 8. Humalog insulin as per sliding scale. CONTRAINDICATION: None. CODE STATUS: Full code. INPATIENT CHIEF CONTROLLER: Dr. Monzon was following while in hospital. TEST RESULT PENDING ON DISCHARGE: None. ALLERGIES: NO KNOWN DRUG ALLERGIES. DISCHARGE PLAN: Post hospital, the patient will follow up with primary care physician in 1 week. HOSPITAL COURSE: A 43-year-old male with above-mentioned medical problem, who was admitted for nausea, vomiting, and abdominal discomfort. He was diagnosed with diabetic ketoacidosis. Please see H and P of Dr. Main for further details. He was admitted to ICU. He was treated with diabetic ketoacidosis protocol. He had improvement next day and we transferred him to medical floor. While in hospital, we noted that he was having upper respiratory infection with bronchitis symptoms and that is why he was treated with Rocephin and azithromycin. On discharge, we prescribed azithromycin to finish complete course of therapy. During this admission, the patient had abnormal electrolytes that was corrected with replacement. On discharge, we added Humalog as per sliding scale. He will continue his Lantus insulin as well as other medications. Dietary education given. Healthy lifestyle measure discussed with the patient. Compliance education was given. Overall, this patient is medically stable for discharge today. The patient is seen and examined at bedside today. Please see my progress note from today for further detail. Job ID: [id number]
== END 2019-01-24 14:35 | disposition home or self-care (01) | DRG 638 ==
LOC: SCSER 17:04 → CCU 17:51 → T4-A 01-22 21:19
PROVIDERS: ADMIT Family Medicine; ATTEND Family Medicine
DX: E10.10 Type 1 diabetes mellitus with ketoacidosis without coma (principal); E87.1 Hypo-osmolality and hyponatremia; E87.2 Acidosis; N17.9 Acute kidney failure, unspecified; J40 Bronchitis, not specified as acute or chronic; I10 Essential (primary) hypertension; E78.5 Hyperlipidemia, unspecified; E87.6 Hypokalemia; F17.210 Nicotine dependence, cigarettes, uncomplicated; F43.10 Post-traumatic stress disorder, unspecified; D64.9 Anemia, unspecified; Z83.3 Family history of diabetes mellitus; Z79.4 Long term (current) use of insulin; Z79.51 Long term (current) use of inhaled steroids; Z79.899 Other long term (current) drug therapy; Z82.49 Family history of ischemic heart disease and other diseases of the circulatory system
CPT/HCPCS: 36415; 36416; 71045; 80048; 80053; 81001; 81003; 81015; 82010; 82330; 82550; 82803; 83690; 83735; 84100; 84484; 85025; 90471; 90686; 90732; 93005; G0008; G0009; J0456; J0696; J1644; J1815; J1825; J2405; J3480; J7050

== ENCOUNTER 2019-08-21 08:04 | Emergency (ER) | payer OTHER ==
[2019-08-21 08:53] LABS: #Basophils 0.1 thou/uL (0.0-0.2); #Eosinphils 0.4 thou/uL (0.0-0.7); #Lymphocytes 3.5 thou/uL (1.20-3.40); #Monocytes 0.5 thou/uL (0.11-0.59); %Basophils 0.6 % (0.0-1.0); %Eosinophils 2.7 % (0.0-10.0); %Lymphocytes 22.6 % (21.0-51.0); %Monocytes 3.4 % (0.0-10.0); %Neutrophils 70.7 % (42.0-75.0); Hemoglobin 15.7 g/dL (14.0-18.0); Mean Corpuscular HGB CONC 33.7 g/dL (32.0-36.0); Mean Corpuscular Volume 85.9 fL (78.0-98.0); Mean Platelet Volume 7.8 fL (7.4-10.4); Platelet Count 268 thou/uL (130-400); RBC Distribution Width 11.5 % (11.5-14.5); Red Blood Cell (RBC) Count 5.43 mill/uL (4.70-6.10); White Blood Cell (WBC) Count 15.5 thou/uL (4.8-10.8)
[2019-08-21 09:05] LABS: Bilirubin Negative (Negative); Blood, Urine Negative (Negative); Clarity Clear (Clear); Glucose, Urine (Dipstick) Greater than 1000 mg/dL (Negative); Leukocyte Negative Leu/uL (Negative); Nitrite Negative (Negative); Protein, Urine (Dipstick) Negative (Neg-Trace); Urobilinogen Normal mg/dL (Less than 2)
[2019-08-21 09:20] LABS: ALT (SGPT) 17 U/L (8-55); AST (SGOT) 15 U/L (5-34); Albumin 4.5 g/dL (3.5-5.0); Alkaline Phosphatase 85 U/L (40-110); Anion Gap 17 mmol/L (10-20); BUN (Urea Nitrogen) 17 mg/dL (8.9-20.6); Bilirubin, Total 0.4 mg/dL (0.2-1.2); Calc. Creatinine Clearance 0 mL/min (70-130); Calcium 9.8 mg/dL (7.8-10.44); Carbon Dioxide 20 mmol/L (22-29); Chloride 100 mmol/L (98-107); Estimated GFR-MDRD 78; Globulin 3.4 g/dL (2.4-3.5); Glucose 384 mg/dL (70-105); Magnesium 1.5 mg/dL (1.6-2.6); Potassium 4.9 mmol/L (3.5-5.1); Protein, Total 7.9 g/dL (6.0-8.3); Sodium 132 mmol/L (136-145)
--- NOTE | 2019-08-21 09:36 | RAD ---
CHEST TWO VIEWS: HISTORY: Dyspnea. Rapid breathing with vomiting. COMPARISON: 01/21/2019 FINDINGS: Mild increased linear and interstitial markings bilaterally having more of a chronic appearance. No c onfluent pneumonia, overt edema or pleural effusion. IMPRESSION: Mild increased bronchovascular markings. No evidence for acute process. POS: TPC
[2019-08-21 11:05] LABS: Anion Gap 11 mmol/L (10-20); BUN (Urea Nitrogen) 15 mg/dL (8.9-20.6); Calc. Creatinine Clearance 0 mL/min (70-130); Calcium 8.3 mg/dL (7.8-10.44); Carbon Dioxide 22 mmol/L (22-29); Chloride 105 mmol/L (98-107); Estimated GFR-MDRD 89; Glucose 282 mg/dL (70-105); Potassium 4.1 mmol/L (3.5-5.1); Sodium 134 mmol/L (136-145)
[2019-08-22 09:36] LABS: Bicarbonate (HCO3v) 20.9 mmol/L (22.0-28.0); CO2 Tension (PvCO2) 33.4 mmHg (40.0-50.0); vO2 Saturation-calc 99.6 % (60.0-85.0)
--- NOTE | 2019-08-23 15:48 | EKG ---
Test Reason : Blood Pressure : / mmHG Vent. Rate : 106 BPM Atrial Rate : 106 BPM P-R Int : 148 ms QRS Dur : 088 ms QT Int : 340 ms P-R-T Axes : 071 115 061 degrees QTc Int : 451 ms Sinus tachycardia Left posterior fascicular block Possible Anterior infarct , age undetermined Abnormal ECG Confirmed by JILLIAN HATFIELD ([id number]), industrial editor JAYME CHILEL ([id number]) on 08/23/2019 3:47:52 PM Referred By: Confirmed By:JILLIAN HATFIELD
== END 2019-08-21 11:43 | disposition home or self-care (01) ==
LOC: ERS 08:04
DX: J06.9 Acute upper respiratory infection, unspecified (principal); E11.65 Type 2 diabetes mellitus with hyperglycemia; F43.10 Post-traumatic stress disorder, unspecified; I10 Essential (primary) hypertension; Z79.4 Long term (current) use of insulin; Z79.899 Other long term (current) drug therapy; Z79.51 Long term (current) use of inhaled steroids
CPT/HCPCS: 36415; 36416; 71046; 80053; 81003; 82010; 82803; 83735; 85025; 93005; 94760; 96360; 96361

== ENCOUNTER 2019-09-14 07:22 | Inpatient (IN) | payer OTHER ==
[2019-09-14 07:59] LABS: #Basophils 0.2 thou/uL (0.0-0.2); #Eosinphils 0.2 thou/uL (0.0-0.7); #Lymphocytes 3.4 thou/uL (1.20-3.40); #Monocytes 0.4 thou/uL (0.11-0.59); #Neutrophils 10.9 thou/uL (1.40-6.50); %Basophils 1.2 % (0.0-1.0); %Lymphocytes 22.3 % (21.0-51.0); %Monocytes 2.9 % (0.0-10.0); %Neutrophils 72.6 % (42.0-75.0); Hemoglobin 18.9 g/dL (14.0-18.0); Mean Corpuscular Hemoglobin 30.2 pg (27.0-31.0); Mean Corpuscular Volume 91.4 fL (78.0-98.0); Mean Platelet Volume 7.8 fL (7.4-10.4); Platelet Count 323 thou/uL (130-400); RBC Distribution Width 12.8 % (11.5-14.5); Red Blood Cell (RBC) Count 6.26 mill/uL (4.70-6.10)
[2019-09-14] MEDS ORDERED: Insulin Regular 300 UNITS/3 ML VIAL ONE (08:12)
[2019-09-14 08:15] LABS: ALT (SGPT) 18 U/L (8-55); AST (SGOT) 11 U/L (5-34); Albumin 4.9 g/dL (3.5-5.0); Alkaline Phosphatase 105 U/L (40-110); BUN (Urea Nitrogen) 16 mg/dL (8.9-20.6); Bilirubin, Total 0.2 mg/dL (0.2-1.2); Calc. Creatinine Clearance 0 mL/min (70-130); Calcium 10.2 mg/dL (7.8-10.44); Chloride 101 mmol/L (98-107); Estimated GFR-MDRD 43; Globulin 4.5 g/dL (2.4-3.5); Glucose 460 mg/dL (70-105); Lipase 67 U/L (8-78); Potassium 5.1 mmol/L (3.5-5.1); Protein, Total 9.4 g/dL (6.0-8.3); Sodium 131 mmol/L (136-145)
[2019-09-14 08:17] LABS: Base Excess-Venous -24.3 mmol/L (-2.0 to 3.0); Bicarbonate (HCO3v) 6.7 mmol/L (22.0-28.0); CO2 Tension (PvCO2) 29.3 mmHg (40.0-50.0); Chloride 112 mmol/L (98-107); Hemoglobin - Calc 19.9 g/dL (14.0-18.0); Potassium 5.5 mmol/L (3.5-5.1); Sodium 131 mmol/L (138-145); T. Carbon Dioxide 7.6 mmol/L (22.0-28.0); vO2 Saturation-calc 70.2 % (60.0-85.0)
[2019-09-14 08:19] LABS: Carbon Dioxide Less than 8 mmol/L (22-29)
--- NOTE | 2019-09-14 08:28 | RAD ---
RADIOGRAPH CHEST 2 VIEWS: DATE: 09/14/2019 HISTORY: 44-year-old male with cough FINDINGS: There is no airspace density, pulmonary edema, pleural effusion, pneumothorax, or cardiomegaly. IMPRESSION: No acute cardiopulmonary findings.
[2019-09-14] MEDS ORDERED: Sodium Bicarb 50 MEQ/50 ML Abboject 8.4% SYRINGE ONE (08:29)
[2019-09-14 08:37] LABS: Phosphorus 4.3 mg/dL (2.3-4.7)
[2019-09-14 09:03] LABS: Bilirubin Small (Negative); Blood, Urine Trace (Negative); Clarity Clear (Clear); Glucose, Urine (Dipstick) 500 mg/dL (Negative); Leukocyte Negative (Negative); Nitrite Negative (Negative); Protein, Urine (Dipstick) 100 mg/dL (Neg-Trace); Urobilinogen 0.2 mg/dL (Less than 2)
[2019-09-14 09:11] LABS: Bacteria/HPF None Seen HPF (None Seen); RBC/HPF 0-3 HPF (0-3); Squamous Epithelial 0-3 HPF (0-3); WBC/HPF 0-3 HPF (0-3)
[2019-09-14] MEDS ORDERED: HUMULIN R 100 UNITS in Sodium Chloride 0.9% 100 ML IVPB SCH (10:14)
[2019-09-14] MEDS ORDERED: Calcium Carbonate 500 MG ChewTAB PO PRN (10:14)
[2019-09-14] MEDS ORDERED: Ondansetron PF 4 MG/2 ML Vial IVP PRN (10:14)
[2019-09-14] MEDS ORDERED: Dextrose 5 %-0.45 % NaCl 1,000 ML IV PRN (10:14)
[2019-09-14] MEDS ORDERED: Ondansetron ODT 4 MG TAB PO PRN (10:14)
[2019-09-14] MEDS ORDERED: Bisacodyl 5 MG TAB PO PRN (10:14)
[2019-09-14] MEDS ORDERED: Acetaminophen 325 MG TAB PO PRN (10:14)
[2019-09-14] MEDS ORDERED: Bisacodyl 10 MG SUPP PR PRN (10:14)
[2019-09-14] MEDS ORDERED: NS 0.9% w/ 20 MEQ KCL 1,000 ML IV PRN (10:14)
[2019-09-14] MEDS ORDERED: Senokot S 8.6-50 MG TAB PO PRN (10:14)
[2019-09-14] MEDS ORDERED: Sodium Chloride 0.9% 1,000 ML IV PRN ×4 (10:14)
[2019-09-14] MEDS ORDERED: CCU Electrolyte Replacement 1 EACH IVPB ONE (10:14)
[2019-09-14] MEDS ORDERED: Potassium Phosphate 9 MMOL in Sodium Chloride 0.9% 100 ML IVPB PRN (10:24)
[2019-09-14] MEDS ORDERED: Magnesium Oxide 400 MG TAB PO PRN ×2 (10:24)
[2019-09-14] MEDS ORDERED: Potassium Phosphate 15 MMOL in Sodium Chloride 0.9% 250 ML 250 ML IV PRN (10:24)
[2019-09-14] MEDS ORDERED: Potassium Chloride 20 MEQ TAB PO PRN (10:24)
[2019-09-14] MEDS ORDERED: PHOS-NAK 1 PKT PACK PO PRN (10:24)
[2019-09-14] MEDS ORDERED: Potassium Phosphate 12 MMOL in Sodium Chloride 0.9% 250 ML 250 ML IV PRN (10:24)
[2019-09-14] MEDS ORDERED: Potassium Chloride 40 MEQ in Sodium Chloride 0.9% 250 ML 250 ML IVPB PRN (10:24)
[2019-09-14] MEDS ORDERED: Magnesium 2 GM/50 ML 2 GM in Premix Bag 1 BAG IVPB PRN (10:24)
[2019-09-14] MEDS ORDERED: CCU ELECTROLYTE REPLACEMENT PROTOCOL FS PRN (10:24)
[2019-09-14] MEDS ORDERED: Potassium Chloride 40 MEQ in Premix Bag 1 BAG IVPB PRN (10:24)
[2019-09-14] MEDS ORDERED: Famotidine 20 MG TAB PO SCH (10:30)
[2019-09-14] MEDS ORDERED: Enoxaparin Sodium 40 MG/0.4 ML SYRINGE SC SCH (10:30)
[2019-09-14] MEDS ORDERED: Famotidine/PF 20 mg/2ml Vial SLOW IVP SCH ×2 (10:30→21:00)
[2019-09-14 11:00] VITALS: BMI 24.3
[2019-09-14 12:33] LABS: BUN (Urea Nitrogen) 14 mg/dL (8.9-20.6); Calc. Creatinine Clearance 82 mL/min (70-130); Calcium 8.5 mg/dL (7.8-10.44); Chloride 109 mmol/L (98-107); Estimated GFR-MDRD 60; Glucose 203 mg/dL (70-105); Potassium 4.5 mmol/L (3.5-5.1); Sodium 134 mmol/L (136-145)
[2019-09-14 12:37] LABS: Carbon Dioxide Less than 8 mmol/L (22-29)
[2019-09-14] MEDS ORDERED: Sodium Bicarb 50 MEQ/50 ML VIAL IVP SCH (12:45)
[2019-09-14] MEDS: NS 0.9% w/ 20 MEQ KCL 1,000 ML IV PRN ×2 (12:59→15:22)
[2019-09-14] MEDS ORDERED: Diabetic Tussin 200 MG/10 ML UDCUP PO PRN (13:33)
[2019-09-14] MEDS ORDERED: Loratadine 10 MG TAB PO PRN (13:33)
--- NOTE | 2019-09-14 14:59 | HP ---
PRIMARY CARE PHYSICIAN: Dr. Maurer. CHIEF COMPLAINT: Nausea, vomiting along with elevated blood sugar. HISTORY OF PRESENT ILLNESS: The patient is a 44-year-old male with diabetes mellitus type 2, presented to the emergency room at [facility] with above complaints. The patient is currently on Lantus 25 units daily along with Humalog sliding scale. Over the last 4 to 5 days, the patient is out of Humalog. He is, however, compliant with Lantus 25 units daily. He also had recent upper respiratory tract infection. Over the last 24 hours, the patient has generalized weakness along with generalized fatigue and body aches. He has nausea and had one episode of vomiting. He denies any abdominal pain, diarrhea, or constipation. No fever or chills reported. He denies any chest pain, shortness of breath, palpitations, or focal neurologic deficit. In the emergency room, his workup was consistent with diabetic ketoacidosis. He was started on insulin drip along with IV fluids. He also received one amp of sodium bicarbonate in the emergency room. PAST MEDICAL HISTORY: 1. Diabetes mellitus type 2. 2. Hypertension. 3. Dyslipidemia. 4. Posttraumatic stress disorder. 5. Mild intermittent asthma. PAST SURGICAL HISTORY: Tonsillectomy. ALLERGIES: NO KNOWN DRUG ALLERGIES. CURRENT HOME MEDICATION: 1. Lantus 25 units at bedtime. 2. Metformin 500 mg b.i.d. He is unable to recall other medications. He is out of Humalog sliding scale. SOCIAL HISTORY: The patient currently uses tobacco. He lives at home with his family. No alcohol or drug use. FAMILY HISTORY: Positive for diabetes. He denies any premature coronary artery disease. REVIEW OF SYSTEMS: All other review of systems was reviewed and were found negative. PHYSICAL EXAMINATION: VITAL SIGNS: Temperature 97.6, respirations 22, pulse rate of 124, blood pressure of 129/82 with O2 saturation 98% on room air. GENERAL: A 44-year-old male in no apparent distress. HEENT: Head, atraumatic and normocephalic. Sclerae anicteric. Dry mucous membranes. No oral lesion. NECK: Supple. No JVD appreciated. No carotid bruit. LUNGS: Clear to auscultation bilaterally. No wheezing, rales, or rhonchi. HEART: S1 and S2 present. Regular rate and rhythm. No rubs or gallops. ABDOMEN: Soft, nontender. Bowel sounds present. No rebound or guarding. No costovertebral angle tenderness. EXTREMITIES: No edema or calf tenderness. NEUROLOGIC: Grossly nonfocal, moves all 4 extremities. PSYCHIATRIC: Alert, awake, oriented x3. SKIN: Warm and dry. LYMPH NODES: No palpable lymph nodes in the neck. PERIPHERAL/VASCULAR: Radial pulses palpable bilaterally. MUSCULOSKELETAL: No joint swelling or tenderness. LABORATORY FINDINGS: WBC 15 with hemoglobin 18.9, platelet count of 323. Venous blood gases showed pH of 6.9 with bicarbonate 6.7. Chemistry showed sodium 131, potassium 5.5, bicarbonate of less than 8, chloride 101, creatinine 1.75. Urinalysis was negative for WBC, bacteria, ketones was 11.18. IMAGING STUDIES: Chest x-ray by my review was negative for infiltrate or edema. EKG by my review showed sinus tachycardia. IMPRESSION: 1. Diabetic ketoacidosis, probably precipitated by underlying upper respiratory tract infection. The patient is also out of Humalog sliding scale. 2. Diabetes mellitus type 2, on insulin. 3. Anion gap metabolic acidosis secondary to diabetic ketoacidosis. 4. Acute kidney injury. 5. Hyponatremia. 6. Hyperkalemia. 7. Chronic leukocytosis. 8. Dehydration with hemoconcentration. 9. Anxiety. 10. Posttraumatic stress disorder. The patient denies any suicidal ideation. 11. Mild intermittent asthma. PLAN: The patient will be monitored in the intermediate care unit. He has been started on insulin drip along with IV fluids per DKA protocol. We will monitor electrolytes every 4 hours. We will check ketones with the next blood work. We will replace electrolytes accordingly. We will add some p.r.n. medications for upper respiratory tract infection. We will recheck labs in a.m. Once his gap is closed, we will change the insulin drip to subcu insulin. DVT prophylaxis. Plan of care was discussed with the patient in detail and he stated understanding. Job ID: [id number]
[2019-09-14 16:35] LABS: Anion Gap 14 mmol/L (10-20); BUN (Urea Nitrogen) 11 mg/dL (8.9-20.6); Calc. Creatinine Clearance 115 mL/min (70-130); Carbon Dioxide 13 mmol/L (22-29); Chloride 113 mmol/L (98-107); Estimated GFR-MDRD 88; Glucose 96 mg/dL (70-105); Sodium 136 mmol/L (136-145)
[2019-09-14] MEDS: Famotidine 20 MG TAB PO SCH (20:48)
[2019-09-14 21:00] LABS: Calcium 8.1 mg/dL (7.8-10.44); Chloride 110 mmol/L (98-107); Potassium 3.9 mmol/L (3.5-5.1); Sodium 132 mmol/L (136-145)
[2019-09-14] MEDS ORDERED: FLU VACC QS2019-20(6MOS UP)/PF 60 MCG/0.5 ML SYRINGE IM ONE (21:00)
[2019-09-14 21:01] LABS: Glucose 203 mg/dL (70-105)
[2019-09-14 21:03] LABS: Anion Gap 16 mmol/L (10-20); Carbon Dioxide 10 mmol/L (22-29)
[2019-09-14 21:04] LABS: Calc. Creatinine Clearance 111 mL/min (70-130); Estimated GFR-MDRD 85
[2019-09-14 21:05] LABS: BUN (Urea Nitrogen) 10 mg/dL (8.9-20.6)
[2019-09-14 21:06] LABS: Magnesium 1.5 mg/dL (1.6-2.6)
[2019-09-14 21:12] LABS: Phosphorus 1.5 mg/dL (2.3-4.7)
[2019-09-14] MEDS: D5 1/2 NS w/20 mEq KCL 1,000 ML IV PRN (21:31)
[2019-09-14] MEDS: PHOS-NAK 1 PKT PACK PO PRN (21:35)
[2019-09-15] MEDS: D5 1/2 NS w/20 mEq KCL 1,000 ML IV PRN ×2 (01:27→06:04)
[2019-09-15 03:47] LABS: Anion Gap 12 mmol/L (10-20); BUN (Urea Nitrogen) 8 mg/dL (8.9-20.6); Calc. Creatinine Clearance 125 mL/min (70-130); Calcium 8.4 mg/dL (7.8-10.44); Carbon Dioxide 14 mmol/L (22-29); Chloride 112 mmol/L (98-107); Estimated GFR-MDRD Greater than 90; Glucose 209 mg/dL (70-105); Magnesium 1.5 mg/dL (1.6-2.6); Potassium 3.4 mmol/L (3.5-5.1); Sodium 135 mmol/L (136-145)
[2019-09-15 03:50] LABS: Phosphorus 1.8 mg/dL (2.3-4.7)
[2019-09-15] MEDS: PHOS-NAK 1 PKT PACK PO PRN (06:09)
[2019-09-15] MEDS ORDERED: Dextrose 5% in Water 1,000 ML IV PRN (07:34)
[2019-09-15] MEDS ORDERED: Insulin Regular 300 UNITS/3 ML VIAL SC PRN (07:34)
[2019-09-15] MEDS ORDERED: Dextrose 50% Abboject 50 ML SYRINGE SLOW IVP PRN (07:34)
[2019-09-15] MEDS ORDERED: DC Electrolyte Protocol FS ONE (07:48)
[2019-09-15] MEDS: Famotidine 20 MG TAB PO SCH ×2 (08:45→19:31)
[2019-09-15] MEDS: 1/2 NS w/KCL 20 mEq 1,000 ML IV SCH ×2 (08:56→16:42)
[2019-09-15] MEDS ORDERED: Insulin Glargine 15 UNITS in Pre-Filled Syringe 1 EACH SC SCH ×2 (09:00→21:00)
[2019-09-15] MEDS ORDERED: Enoxaparin Sodium 40 MG/0.4 ML SYRINGE SC SCH (09:00)
[2019-09-15] MEDS: Insulin Regular 300 UNITS/3 ML VIAL SC PRN ×2 (11:09→17:13)
[2019-09-15] MEDS ORDERED: Citalopram 20 MG TAB PO SCH (16:15)
[2019-09-15] MEDS ORDERED: Bupropion 150 MG XL TAB PO SCH ×2 (16:15→16:45)
[2019-09-15] MEDS ORDERED: PROVENTIL INHALER 6.7 G (200 INHALATIONS) INH PRN (18:30)
--- NOTE | 2019-09-15 18:58 | PDOC.HOSPP ---
- Subjective Encounter Date: 09/15/19 Encounter Time: 10:00 Subjective: Patient seen and examined for DKA. Doing well. No N/V. No new complaints. No overnight events - Objective Vital Signs & Weight: Vital Signs (12 hours) Temp Pulse Resp BP Pulse Ox 09/15/19 14:24 98.1 F 93 16 107/77 97 09/15/19 11:21 97.6 F 09/15/19 08:00 100 09/15/19 07:22 97.9 F Weight Weight 174 lb 8 oz Most Recent Monitor Data Heart Rate from ECG 99 NIBP 140/98 NIBP BP-Mean 112 Respiration from ECG 32 SpO2 99 I&O: 09/14/19 09/15/19 09/16/19 06:59 06:59 06:59 Intake Total 6152 1056 Output Total 2670 975 Balance 3482 81 Result Diagrams: 09/14/19 07:38 09/15/19 02:54 Additional Labs: Accuchecks 09/15/19 09/15/19 09/15/19 17:14 10:40 08:07 POC Glucose 234 H 256 H 136 H 09/15/19 09/15/19 09/15/19 07:05 06:06 05:07 POC Glucose 132 H 153 H 169 H 09/15/19 09/15/19 09/15/19 04:06 03:09 02:10 POC Glucose 190 H 195 H 205 H 09/15/19 09/15/19 09/14/19 01:15 00:06 23:10 POC Glucose 223 H 225 H 219 H 09/14/19 09/14/19 09/14/19 22:06 21:20 20:27 POC Glucose 224 H 212 H 179 H 09/14/19 09/14/19 19:19 10:03 POC Glucose 185 H 274 H Laboratory Tests 09/15/19 02:54 Phosphorus 1.8 L Magnesium 1.5 L EKG Reviewed by me: Yes (Tele SR) Hospitalist ROS - Review of Systems Respiratory: denies: cough, dry, shortness of breath, hemoptysis, SOB with excertion, pleuritic pain, sputum, wheezing, other Cardiovascular: denies: chest pain, palpitations, orthopnea, paroxysmal noc. dyspnea, edema, light headedness, other Gastrointestinal: denies: nausea, vomiting, abdominal pain, diarrhea, constipation, melena, hematochezia, other - Medication Medications: Active Medications Generic Name Dose Route Start Last Admin Trade Name Freq PRN Reason Stop Dose Admin Enoxaparin Sodium 40 mg 09/15/19 09:00 09/15/19 08:45 Lovenox SC 40 mg 0900 JOCELYNE Administration Famotidine 20 mg 09/14/19 21:00 09/15/19 08:45 Pepcid PO 20 mg BID JOCELYNE Administration Insulin Glargine 15 units/ 0.15 mls @ 0 mls/hr 09/15/19 09:00 09/15/19 08:45 Miscellaneous Medication SC 0.15 mls QAM JOCELYNE Administration Potassium Chloride/Sodium Chloride 1,000 mls @ 125 mls/hr 09/15/19 08:00 09/23 16:42 1/2 Ns W/Kcl 20 Meq IV 1,000 mls .Q8H JOCELYNE Administration Insulin Human Regular 0 units 09/15/19 07:34 09/15/19 17:13 Humulin R SC 4 unit .MODERATE SLIDING SC PRN Administration Moderate Correctional Scale Sodium Chloride 10 ml 09/14/19 10:14 09/14/19 20:45 Flush - Normal Saline IVF 10 ml PRN PRN Administration Saline Flush - Exam General Appearance: NAD Neck: supple, no JVD Heart: RRR, no gallops, no rubs, normal peripheral pulses Respiratory: CTAB, no wheezes, no rales, no ronchi Gastrointestinal: soft, non-tender, non-distended, normal bowel sounds Extremities: no cyanosis, no clubbing, no edema Psychiatric: normal affect, A&O x 3 Hosp A/P - Plan DVT proph w/SCDs 1. DKA 2. DM2 3. Anion gap metabolic acidosis secondary to diabetic ketoacidosis. 4. Acute kidney injury. 5. Hyponatremia/Hypokalemia/Hypophosphatemia 6. Hyperkalemia on admission. 7. Chronic leukocytosis. 8. Dehydration with hemoconcentration. 9. Anxiety. 10. Posttraumatic stress disorder. The patient denies any suicidal ideation. 11. Mild intermittent asthma. PLAN: DC Insulin drip after SQ Lantus 15 units Moderate sliding scale Replace electrolytes BMP in AM Resume home meds Lantus 15 units BID - will titrate
[2019-09-15] MEDS ORDERED: K-Phos Neutral 250 MG TAB PO SCH (19:00)
[2019-09-15] MEDS ORDERED: Magnesium 2 GM/50 ML 2 GM in Premix Bag 1 BAG IVPB SCH (19:00)
[2019-09-15] MEDS ORDERED: Insulin Glargine 20 UNITS in Pre-Filled Syringe SC SCH (21:00)
[2019-09-16] MEDS: 1/2 NS w/KCL 20 mEq 1,000 ML IV SCH ×2 (01:17→13:08)
[2019-09-16 06:57] LABS: Anion Gap 10 mmol/L (10-20); BUN (Urea Nitrogen) 6 mg/dL (8.9-20.6); Calc. Creatinine Clearance 158 mL/min (70-130); Carbon Dioxide 22 mmol/L (22-29); Chloride 110 mmol/L (98-107); Estimated GFR-MDRD Greater than 90; Glucose 100 mg/dL (70-105); Potassium 3.3 mmol/L (3.5-5.1); Sodium 139 mmol/L (136-145)
[2019-09-16 06:58] LABS: Calcium 8.5 mg/dL (7.8-10.44); Magnesium 1.7 mg/dL (1.6-2.6); Phosphorus 3.2 mg/dL (2.3-4.7)
[2019-09-16] MEDS: Famotidine 20 MG TAB PO SCH (08:21)
[2019-09-16] MEDS ORDERED: Potassium Chloride 20 MEQ TAB PO SCH (08:30)
[2019-09-16] MEDS ORDERED: Insulin Glargine 20 UNITS in Pre-Filled Syringe SC SCH (09:00)
[2019-09-16] MEDS ORDERED: Citalopram 20 MG TAB PO SCH (09:00)
[2019-09-16] MEDS ORDERED: Bupropion 150 MG XL TAB PO SCH (09:00)
[2019-09-16] MEDS: Insulin Regular 300 UNITS/3 ML VIAL SC PRN (12:15)
[2019-09-16 13:41] VITALS: BP 141/92; TEMP 98.6
--- NOTE | 2019-09-16 22:42 | DIS ---
DATE OF ADMISSION: 09/14/2019 DATE OF DISCHARGE: 09/16/2019 DISCHARGE DISPOSITION: Home. FOLLOWUP: Follow up with primary care with Dr. Maurer in 1 week. ALLERGIES: NO KNOWN DRUG ALLERGIES. DISCHARGE MEDICATION: Lantus dose was increased to 20 units in a.m. and 10 units q.p.m. The patient was advised to monitor his blood glucose on a daily basis and to maintain a log until evaluated by Dr. Maurer next week. All other home medications were left unchanged. DIAGNOSTIC TESTS: Creatinine on admission was 1.75, at discharge was 0.68. Magnesium 1.5, phosphorus 1.8, potassium 3.4. WBC of 18.9 on admission. VBG showed pH of 6.9 with bicarbonate 6.7, pCO2 of 29.3. Ketones 11.1 on admission and 0.78 yesterday. BRIEF HOSPITAL COURSE: The patient is a 44-year-old male with diabetes mellitus type 2, currently on Lantus 25 units daily as well as Humalog sliding scale, presented to the emergency room on 09/14/2019, with nausea, vomiting, along with elevated blood sugar level in 400s. He stated that he was out of Humalog sliding scale and was unable to get the prescription from the pharmacy. He however was compliant with Lantus 25 units daily per patient's report. His workup was consistent with diabetic ketoacidosis. He was monitored in the intermediate care unit. He was placed on insulin drip along with IV fluids. His electrolytes were monitored closely. It was replaced appropriately. His magnesium and phosphorus were normal on the day of discharge. His symptoms have significantly improved. He denies any nausea or vomiting at this time. He was advised to monitor his blood sugar on a daily basis and to maintain a log. Lantus dose was increased to 30 units a day. FINAL DIAGNOSES: 1. Diabetic ketoacidosis, probably precipitated by underlying respiratory tract infection. He was also out of Humalog sliding scale. 2. Diabetes mellitus type 2, on insulin. 3. Anion gap metabolic acidosis secondary to diabetic ketoacidosis. 4. Acute kidney injury, resolved. 5. Multiple electrolyte abnormalities including hyponatremia, hypokalemia, hypomagnesemia, and hypophosphatemia corrected. 6. Hyperkalemia on admission secondary to acidosis. 7. Chronic leukocytosis. 8. Dehydration with hemoconcentration. 9. Anxiety/posttraumatic stress disorder. 10. Mild intermittent asthma. PLAN: Plan was discussed with the patient in detail. He stated understanding. Job ID: [id number]
== END 2019-09-16 13:57 | disposition home or self-care (01) | DRG 638 ==
LOC: SCSER 07:22 → IMCU/EMU 08:46 → T4-A 09-15 14:26
PROVIDERS: ADMIT Internal Medicine; ATTEND Internal Medicine
DX: E11.10 Type 2 diabetes mellitus with ketoacidosis without coma (principal); N17.9 Acute kidney failure, unspecified; E87.1 Hypo-osmolality and hyponatremia; I10 Essential (primary) hypertension; F43.10 Post-traumatic stress disorder, unspecified; J45.20 Mild intermittent asthma, uncomplicated; E78.5 Hyperlipidemia, unspecified; F17.200 Nicotine dependence, unspecified, uncomplicated; E87.5 Hyperkalemia; D72.829 Elevated white blood cell count, unspecified; E86.0 Dehydration; F41.9 Anxiety disorder, unspecified; E83.42 Hypomagnesemia; E83.39 Other disorders of phosphorus metabolism; Z79.4 Long term (current) use of insulin
CPT/HCPCS: 36415; 36416; 71046; 80048; 80053; 81003; 81015; 82010; 82330; 82803; 83690; 83735; 84100; 84484; 85025; 93005; 96365; 96368; 96376; J1650; J1815; J3475; J3480; S0028

== ENCOUNTER 2022-08-25 02:52 | Inpatient (IN) | payer BC, SELFPAY ==
[2022-08-25] MEDS ORDERED: Acetaminophen 325 MG TAB PO PRN (03:20)
[2022-08-25] MEDS ORDERED: Ondansetron PF 4 MG/2 ML Vial IVP PRN (03:20)
[2022-08-25] MEDS ORDERED: NS 0.9% w/ 20 MEQ KCL 1,000 ML IV PRN ×2 (03:22)
[2022-08-25] MEDS ORDERED: Electrolyte Replacement Protocol 1 EACH IVPB ONE (03:22)
[2022-08-25] MEDS ORDERED: Dextrose 5 %-0.45 % NaCl 1,000 ML IV PRN (03:22)
[2022-08-25] MEDS ORDERED: Sodium Chloride 0.9% 1,000 ML IV PRN ×4 (03:22)
[2022-08-25] MEDS ORDERED: NS 0.9% w/ 40 MEQ KCL 1,000 ML IV SCH (03:30)
[2022-08-25] MEDS ORDERED: HUMULIN R 100 UNITS in Sodium Chloride 0.9% 100 ML IVPB SCH ×2 (03:30)
[2022-08-25] MEDS ORDERED: Magnesium 2 GM/50 ML(in water) 2 GM in Premix Bag 1 BAG IVPB SCH (03:45)
[2022-08-25] MEDS ORDERED: PHOS-NAK 1 PKT PACK PO SCH (04:00)
[2022-08-25] MEDS: D5 1/2 NS w/20 mEq KCL 1,000 ML IV PRN ×2 (04:08→09:11)
[2022-08-25 05:55] LABS: #Basophils 0.1 thou/uL (0.0-0.2); #Eosinphils 0.8 thou/uL (0.0-0.7); #Lymphocytes 5.1 thou/uL (1.20-3.40); #Monocytes 0.9 thou/uL (0.11-0.59); #Neutrophils 6.2 thou/uL (1.40-6.50); %Eosinophils 6.4 % (0.0-10.0); %Lymphocytes 38.7 % (21.0-51.0); %Monocytes 7.1 % (0.0-10.0); %Neutrophils 46.8 % (42.0-75.0); Mean Corpuscular HGB CONC 34.5 g/dL (32.0-36.0); Mean Corpuscular Hemoglobin 30.8 pg (27.0-31.0); Mean Corpuscular Volume 89.3 fL (78.0-98.0); Mean Platelet Volume 7.7 fL (7.4-10.4); Platelet Count 211 thou/uL (130-400); RBC Distribution Width 11.2 % (11.5-14.5); White Blood Cell (WBC) Count 13.1 thou/uL (4.8-10.8)
[2022-08-25] MEDS ORDERED: Electrolyte Replacement Protocol FS PRN (06:15)
[2022-08-25 06:18] LABS: Anion Gap 11 mmol/L (10-20); BUN (Urea Nitrogen) 8 mg/dL (8.9-20.6); Calc. Creatinine Clearance 0 mL/min (70-130); Calcium 8.7 mg/dL (7.8-10.44); Carbon Dioxide 15 mmol/L (22-29); Chloride 110 mmol/L (98-107); Estimated GFR 113; Glucose 113 mg/dL (70-105); Potassium 3.4 mmol/L (3.5-5.1); Sodium 133 mmol/L (136-145)
[2022-08-25 06:23] LABS: Phosphorus 2.2 mg/dL (2.3-4.7)
[2022-08-25] MEDS ORDERED: FLU VACC QS2022-23(6MOS UP)/PF 60 MCG/0.5 ML SYRINGE IM ONE (07:15)
[2022-08-25] MEDS ORDERED: Potassium Chloride 20 MEQ TAB PO SCH (08:00)
[2022-08-25 08:19] LABS: Hemoglobin A1c 12.1 % (4.0-6.0)
[2022-08-25] MEDS ORDERED: Enoxaparin Sodium 40 MG/0.4 ML SYRINGE SC SCH (09:00)
[2022-08-25 10:04] LABS: Anion Gap 12 mmol/L (10-20); BUN (Urea Nitrogen) 6 mg/dL (8.9-20.6); Calc. Creatinine Clearance 0 mL/min (70-130); Calcium 8.4 mg/dL (7.8-10.44); Carbon Dioxide 15 mmol/L (22-29); Chloride 107 mmol/L (98-107); Estimated GFR 112; Glucose 282 mg/dL (70-105); Potassium 3.6 mmol/L (3.5-5.1); Sodium 130 mmol/L (136-145)
[2022-08-25] MEDS ORDERED: Insulin Glargine 30 UNITS/0.3 ML VIAL SC SCH (11:45)
[2022-08-28 10:54] VITALS: TEMP 98.8; BMI 20.5
== END 2022-08-25 16:47 | disposition home or self-care (01) | DRG 639 ==
LOC: IMCU/EMU 02:54
PROVIDERS: ADMIT Internal Medicine; ATTEND Internal Medicine
DX: E11.10 Type 2 diabetes mellitus with ketoacidosis without coma (principal); I10 Essential (primary) hypertension; M45.9 Ankylosing spondylitis of unspecified sites in spine; Z20.822 Contact with and (suspected) exposure to COVID-19; F17.210 Nicotine dependence, cigarettes, uncomplicated; E83.42 Hypomagnesemia; D72.829 Elevated white blood cell count, unspecified; F43.10 Post-traumatic stress disorder, unspecified; Z79.4 Long term (current) use of insulin; Z79.51 Long term (current) use of inhaled steroids; Z79.899 Other long term (current) drug therapy; Z79.84 Long term (current) use of oral hypoglycemic drugs
CPT/HCPCS: 36415; 36416; 83036; 84100; 85025; J1815; J3475; J3480; J3490

== ENCOUNTER 2024-10-03 16:11 | Emergency (ER) | payer BC ==
[2024-10-03 17:24] LABS: Bacteria/HPF None Seen HPF (None Seen); Bilirubin Negative (Negative); Blood, Urine Negative (Negative); CAUTI Indications for Culture Dysuria,urgency,freq; Clarity Clear (Clear); Glucose, Urine (Dipstick) Greater than 1000 mg/dL (Negative); Ketone, Urine 100 mg/dL (Negative); Leukocyte Negative Leu/uL (Negative); Nitrite Negative (Negative); Protein, Urine (Dipstick) 10 mg/dL (Neg-Trace); RBC/HPF None Seen HPF (0-3); Specific Gravity, Urine 1.037 (1.002-1.036); Squamous Epithelial 0-3 HPF (0-3); Urobilinogen Normal mg/dL (Less than 2); WBC/HPF None Seen HPF (0-3); pH, Urine 5.5 (5.0-9.0)
[2024-10-03 17:29] LABS: Urine Culture Reflex No No
[2024-10-03 17:38] LABS: #Basophils 0.09 10x3/uL (0.0-0.2); %Basophils 0.7 % (0.0-1.0); %Eosinophils 1.1 % (0.0-10.0); %Lymphocytes 28.8 % (21.0-51.0); %Neutrophils 64.1 % (42.0-75.0); Hematocrit 47.9 % (42.0-52.0); Hemoglobin 16.9 g/dL (14.0-18.0); Mean Corpuscular HGB CONC 35.3 g/dL (32.0-36.0); Mean Corpuscular Hemoglobin 30.8 pg (27.0-31.0); Mean Corpuscular Volume 87.2 fL (78.0-98.0); Mean Platelet Volume 10.1 fL (7.4-10.4); Platelet Count 263 10x3/uL (130-400); RBC Distribution Width 11.6 % (11.5-14.5); Red Blood Cell (RBC) Count 5.49 mill/uL (4.70-6.10)
[2024-10-03 17:59] LABS: Phosphorus 2.7 mg/dL (2.3-4.7)
[2024-10-03 18:00] LABS: ALT (SGPT) 13 U/L (8-55); AST (SGOT) 14 U/L (5-34); Albumin 4.5 g/dL (3.5-5.0); Alkaline Phosphatase 85 U/L (40-110); Anion Gap 18 mmol/L (10-20); BUN (Urea Nitrogen) 12 mg/dL (8.9-20.6); Bilirubin, Total 0.4 mg/dL (0.2-1.2); Calc. Creatinine Clearance 0 mL/min (70-130); Calcium 9.5 mg/dL (7.8-10.44); Carbon Dioxide 16 mmol/L (22-29); Chloride 100 mmol/L (98-107); Estimated GFR 85; Globulin 3.3 g/dL (2.4-3.5); Glucose 313 mg/dL (70-105); Lipase 49 U/L (8-78); Magnesium 1.6 mg/dL (1.6-2.6); Protein, Total 7.8 g/dL (6.0-8.3); Sodium 130 mmol/L (136-145)
[2024-10-03 18:02] LABS: Troponin I Less than 0.010 ng/mL (< 0.028)
[2024-10-03 18:12] LABS: Actual Bicarbonate (HCO3v) 17.5 mEq/L (22-28); Base Excess -7.7 mEq/L (-2.0 to +3.0); Calcium, Ionized (venous) 1.21 mmol/L (1.16-1.32); Chloride (VBG) 98 mmol/L (98-106); Hematocrit-VBG 52 % (42.0-52.0); Hemoglobin (Hb) 17.7 g/dL (13.1-17.2); Sodium 134 mmol/L (133-146); pH (venous) 7.311 (7.32-7.43)
[2024-10-03] MEDS ORDERED: Ondansetron PF 4 MG/2 ML Vial ONE (19:34)
[2024-10-03] MEDS ORDERED: Insulin Glargine 30 UNITS/0.3 ML VIAL SC SCH (20:00)
[2024-10-03 20:38] LABS: Anion Gap 17 mmol/L (10-20); BUN (Urea Nitrogen) 9 mg/dL (8.9-20.6); Calc. Creatinine Clearance 0 mL/min (70-130); Calcium 7.7 mg/dL (7.8-10.44); Carbon Dioxide 16 mmol/L (22-29); Chloride 107 mmol/L (98-107); Estimated GFR 110; Glucose 200 mg/dL (70-105); Potassium 3.7 mmol/L (3.5-5.1); Sodium 136 mmol/L (136-145)
[2024-10-03 21:44] LABS: Actual Bicarbonate (HCO3v) 16.6 mEq/L (22-28); Analyzer IN Cardio ER; Base Excess -8.7 mEq/L (-2.0 to +3.0); Calcium, Ionized (venous) 1.11 mmol/L (1.16-1.32); Chloride (VBG) 102 mmol/L (98-106); Hematocrit-VBG 46 % (42.0-52.0); Hemoglobin (Hb) 15.8 g/dL (13.1-17.2); Potassium (VBG) 3.84 mmol/L (3.70-5.30); Sodium 136 mmol/L (133-146); pH (venous) 7.304 (7.32-7.43)
== END 2024-10-03 23:08 | disposition home or self-care (01) ==
LOC: ERS 16:11
DX: E11.65 Type 2 diabetes mellitus with hyperglycemia (principal); R11.2 Nausea with vomiting, unspecified; I10 Essential (primary) hypertension; F17.210 Nicotine dependence, cigarettes, uncomplicated
CPT/HCPCS: 36415; 36416; 74177; 80053; 81001; 82010; 82805; 83690; 83735; 84100; 84484; 85025; 93005; 94760; 96361; 96374; J1815; J2405